=== PATIENT | male | born 1965 | race African-American/Black ===

== ENCOUNTER 2024-11-27 19:03 | Inpatient (IN) | payer MEDICAID, OTHER ==
[~2024-11-27] VITALS: Ht 188 cm; Wt 120.9 kg
--- NOTE | 2024-11-27 19:30 | ED.PDOC ---
SOB-HPI HPI Comments 59-year-old male who presents to the ED with c/c of shortness of breath Patient states he has had 4 episodes of episodic shortness of breath and came today for further evaluation after he noted associated chest pain Patient states the chest pain is substernal nonradiating with noted exacerbation of pain with exertion and L relieving factors Patient states he otherwise has a noted history of stress corner artery disease with 2 stents placed and hypertension but states he has been out of his blood pressure and blood thinner medication for the past year Patient states he has tried to get an appointment with PCP with states appointments has been getting rescheduled or canceled Patient states he was not taking his blood thinner for the past year and states he has been taking blood pressure medication given to him by his mother patient in the ED has a notable pressure of 193/106 with otherwise stable vitals including heart rate 79 respiratory rate 18 temperature 99.2 F and O2 saturation 96% on room air Patient now in the ED otherwise denies any chest pain or shortness of breath an states the symptoms resolved prior to ED arrival Patient in the ED otherwise denies headache dizziness diaphoresis chills nausea vomiting or any associated symptoms Past Medical history: Hypertension, coronary artery disease, hyperlipidemia Past Surgical history: 2 x cardiac stents Medications: Unknown blood thinner Allergies: denies Social history: denies ETOH, denies tobacco use, denies drug use HPI: Poor Historian. REVIEW OF SYSTEMS: CONSTITUTIONAL: Denies acute: fever, diaphoresis, chills, generalized weakness. HEAD: Denies acute: headache, photophobia Eyes: Denies acute: Double vision, vision loss, eye pain, eye discharge. EARS: Denies acute: tinnitus, hearing loss, ear discharge, ear pain, THROAT: Denies acute: sore throat, swelling, difficulty swallowing , pain with swallowing, change in voice. NECK: Denies acute: neck pain, neck swelling, stiff neck. HEART: Denies acute : palpitations, LUNGS: Denies acute: wheezing, cough, hemoptysis ABDOMEN: Denies acute: abdominal pain, Nausea, Vomiting, diarrhea, melena , hematemesis, hematochezia SKIN: Denies acute: rash, redness, lesions, itchiness. EXTREMITIES: Denies acute: calf pain, numbness, tingling, weakness, denies pain in extremity. Denies acute: Low back pain. Neuro: Denies acute: focal neurological deficit, motor or sensory focal neurological deficit, tremors, seizure like activity, confusion, dizziness, change in mental status, loss of bowel or bladder function, cauda equina like symptoms. : Denies acute: dysuria, hematuria, flank pain, increase in urinary frequency. PSYCH: Denies acute: hallucination, suicidal ideation, homicidal ideation. PHYSICAL EXAM: General: ----mild----acute distress, awake and alert. Head: normocephalic, atraumatic. Neck: supple, trachea is midline, no swelling. Throat: Normal phonation. Eyes:, no erythema, no purulent discharge, no proptosis, no icterus. Heart: regular rate, regular rhythm, no significant murmur appreciated. Lungs: no apparent respiratory distress, Able to speak in full sentences. No wheezing, no rhonchi, no crackles. No stridors Clear to auscultation bilaterally. Abdomen: non tender to palpation, non distended, soft, no guarding, no rebound, + bowel sounds. Neuro: Awake, Alert, oriented to name, self, situation, follows commands GCS=15. Speech is normal. Skin: no petechia, no purpura, no cyanosis, non-pale, not jaundice. Lower extremities: --no - Pitting edema no deformity, no focal swelling, no calf TTP. Makes eye contact. moves all four extremities. Face: no apparent facial droop. Ambulating in the ED independently. ED COURSE: DISCLAIMER: This medical document was created using an electronic medical record system with voice recognition software and computerized dictation system. Although this document has been carefully reviewed, there might still be some phonetic and typographical errors. Occasional wrong-word or "sound-alike" substitutions may have occurred due to the inherent limitations of voice recognition software. These areas are purely typographical due to imperfections of the software programs and do not reflect any compromise in the patient's medical care. Please read the chart carefully and recognize, using context, where these substitutions have occurred. Chief Complaint: Shortness of Breath Time Seen by MD: 20:21 Reviewed notes: Medications, Allergies Information Source: Patient Mode of Arrival: Ambulatory EKG EKG : Pulse Rate (adult): 77 [place]: Normal Cardiac Rhythm: NSR Block: None Hypertrophy: None ST: Normal Comments T-wave inversions in lead III, V5 and V6 Was a procedure done? Was a procedure done?: No Differential Dx Differential Diagnosis: Other (DDx include ACS, unstable angina, anxiety, PE, pneumothroax, neoplasm, cardiac ischemia, COPD, asthma, CHF, pleural effusion, tobacco abuse, pneumonia, hypoxia, hypercapnia, anemia., infection/sepsis., pulmonary edema. Asthma, Cardiac tamponade, infection.) X-Ray, Labs, Meds, VS Vital Signs Date Time Temp Pulse Resp B/P (MAP) Pulse Ox O2 Delivery O2 Flow Rate FiO2 11/27/24 21:21 66 150/101 11/27/24 21:03 181/111 11/27/24 21:01 65 181/111 (134) 11/27/24 21:01 181/111 11/27/24 20:29 176/110 11/27/24 20:27 73 11/27/24 20:26 98.2 76 14 176/110 (132) 96 98.2 11/27/24 19:29 77 11/27/24 19:13 77 11/27/24 19:04 99.2 79 18 193/106 96 99.2 Lab Test 11/27/24 20:31 11/27/24 19:23 Range/Units Phosphorus Level 2.6 2.4-5.1 mg/dL Magnesium Level 2.0 1.6-2.6 mg/dL Troponin I High Sensitivity 34 33 </=54 ng/L Triglycerides Level 166 H < 150 mg/dL Cholesterol Level 129 < 200 mg/dL LDL Cholesterol 73 < 100 mg/dL HDL Cholesterol 39 L 40-59 mg/dL White Blood Count 7.9 4.4-10.8 10^3/uL Red Blood Count 4.21 L 4.5-5.90 10^6/uL Hemoglobin 13.7 13.5-17.5 g/dL Hematocrit 40.1 L 41.0-53.0 % Mean Corpuscular Volume 95.4 80.0-100.0 fL Mean Corpuscular Hemoglobin 32.6 H 28.0-32.0 pg Mean Corpuscular Hemoglobin Concent 34.1 32.0-36.0 g/dL Red Cell Distribution Width 12.7 11.8-14.3 % Platelet Count 230 140-450 10^3/uL Mean Platelet Volume 9.1 6.9-10.8 fL Neutrophils (%) (Auto) 68.7 37.0-80.0 % Lymphocytes (%) (Auto) 21.5 10.0-50.0 % Monocytes (%) (Auto) 7.6 0.0-12.0 % Eosinophils (%) (Auto) 1.3 0.0-7.0 % Basophils (%) (Auto) 0.9 0.0-2.0 % Neutrophils # (Auto) 5.4 1.6-8.6 10 ^3/uL Lymphocytes # (Auto) 1.7 0.4-5.4 10 ^3/uL Monocytes # (Auto) 0.6 0-1.3 10 ^3/uL Eosinophils # (Auto) 0.1 0-0.8 10 ^3/uL Basophils # (Auto) 0.1 0-0.2 10 ^3/uL Nucleated Red Blood Cells 0.1 % Sodium Level 137 136-145 mmol/L Potassium Level 4.1 3.5-5.1 mmol/L Chloride Level 102 98-107 mmol/L Carbon Dioxide Level 28 20-31 mmol/L Anion Gap 7 5-15 Blood Urea Nitrogen 23 9-23 mg/dL Creatinine 1.77 H 0.700-1.30 mg/dL Glomerular Filtration Rate Calc 44 >90 mL/min BUN/Creatinine Ratio 13.0 10.0-20.0 Serum Glucose 311 H 74-106 mg/dL Hemoglobin A1c 8.5 H <5.7 % A1C Calcium Level 8.9 8.7-10.4 mg/dL Total Bilirubin 0.3 0.2-1.0 mg/dL Aspartate Amino Transferase (AST) 19 13-40 U/L Alanine Aminotransferase (ALT) 17 7-40 U/L Alkaline Phosphatase 69 46-116 U/L B-Type Natriuretic Peptide 19.63 0-100 pg/mL Total Protein 6.3 5.7-8.2 g/dL Albumin 3.6 3.2-4.8 g/dL Vitamin B12 Level 572 211-911 pg/mL Vitamin D 25-Hydroxy 34.0 30.0-100 ng/mL Thyroid Stimulating Hormone (TSH) 1.03 0.55-4.78 uIU/mL [facility] [address] [facility] [address] Ph: [phone] DIAGNOSTIC IMAGING Diagnostic Imaging Report : [id number] Signed PATIENT: CAMI CARRILLOT: [id number] UNIT: [id number] : 1965 LOC: ER ROOM / BED: / AGE / SEX: 59 / M ADM STATUS: REG ER SERVICE 16 ORDERING PHYSICIAN: FERNANDEZ LANGLEY DO PROCEDURE(s): CXRP - CHEST PORTABLE REASON: cp/sob ORDER NUMBER(s): [id number], ACCESSION NUMBER(s): [id number] CHEST RADIOGRAPH Indication: cp/sob Technique: Single frontal view of the chest was obtained COMPARISON: None FINDINGS: Lungs and pleural spaces are clear. Cardiac silhouette and shwetha are within normal limits. Bones and soft tissues demonstrate no significant abnormality. IMPRESSION: No acute disease. ATED BY: JCARLOS ISAAC MD DICTATED DATE/TIME: 11/27/242001 SIGNED BY: JCARLOS ISAAC MD SIGNED DATE/TIME: 11/27/242001 CC: Time of 1ST Reevaluation: 00:00 Reevaluation 1ST: N/A Patient Education/Counseling: Diagnosis, Treatment Family Education/Counseling: No Family Present Comments MDM: patient presented with the above HPI.--dyspnea----workup was initiated. patient was found with the above mentioned diagnosis. the following medications were ordered: please refer to order lists of meds and tests obtained by myself Dr. Langley. Patient ED course and VS have been stabilized. Patient has been reassessed in the ED and remained in a stable condition. Pertinent incidental findings were discussed with the patient and/or family. Patient/family voices understanding and is agreeable with plan. Patient has been observed in the ED adequate length of time to insure i mprovement/stability. Escalation of care considered: Consideration of escalation to observation or admission Patient was ADMITTED to the medicine team for further evaluation and treatment of their presentation. All the reports of any imaging studies that were ordered by myself were reviewed by myself. SEPSIS Sepsis Screen Date sepsis recognized/suspect: Nov 27, 2024 Time Sepsis recognized/suspect: 1906 Recent Procedure: No On Antibiotic Therapy: No Respiratory Rate >20: No Heart Rate >90: No Temp<36 C (96.8 F) or >38.3 C: No SBP <90 or MAP <65 mmHG: No New Acute Mental Status Change: No Is the patient on CPAP, BIPAP,: No Physician Orders Geoscience Technician (11/27/24 ) Chest Portable (11/27/24 19:17) Vital Signs Date Time Temp Pulse Resp B/P (MAP) Pulse Ox O2 Delivery O2 Flow Rate FiO2 11/27/24 21:21 66 150/101 11/27/24 21:03 181/111 11/27/24 21:01 65 181/111 (134) 11/27/24 21:01 181/111 11/27/24 20:29 176/110 11/27/24 20:27 73 11/27/24 20:26 98.2 76 14 176/110 (132) 96 98.2 11/27/24 19:29 77 11/27/24 19:13 77 11/27/24 19:04 99.2 79 18 193/106 96 99.2 Laboratory Tests Test 11/27/24 19:23 White Blood Count 7.9 10^3/uL (4.4-10.8) Departure 1 Departure Time of Disposition: 20:33 Impression: Primary Impression: Chest pain Additional Impressions: Abnormal EKG T wave inversion in EKG Hypertension Disposition: ADMITTED INPATIENT Admit to: Tele Condition: Guarded e-Prescriptions No Active Prescriptions or Reported Meds Discharged With: Self Critical Care Note Critical Care Time?: Yes (35 min-critical care time only) Heart Score Heart Score: Heart Score Response (Comments) Value History Slightly Suspicious 0 EKG Repolarization Disturb 1 Age 45-64 1 Risk Factors 1 or 2 risk factors 1 Troponin Normal limit 0 Total 3 I personally scribed for FERNANDEZ LANGLEY DO ([facility]) on 11/27/24 at 19:29. Electronically submitted by Olive Hollingsworth ([facility]). I personally scribed for FERNANDEZ LANGLEY DO ([email or web address]) on 11/27/24 at 20:22. Electronically submitted by Olive Hollingsworth ([facility]). I personally scribed for FERNANDEZ LANGLEY DO ([email or web address]) on 11/27/24 at 20:24. Electronically submitted by Olive Hollingsworth ([facility]). FERNANDEZ LANGLEY DO Nov 27, 2024 19:29
[2024-11-27 19:41] LABS: Hematocrit 40.1 % (41.0-53.0); Hemoglobin 13.7 g/dL (13.5-17.5); Mean Corpuscular Hemoglobin 32.6 pg (28.0-32.0); Mean Corpuscular Volume 95.4 fL (80.0-100.0); Nucleated Red Blood Cells % 0.1 %
[2024-11-27 19:55] LABS: Alanine Aminotransferase 17 U/L (7-40); Albumin 3.6 g/dL (3.2-4.8); Alkaline Phosphatase 69 U/L (46-116); Anion Gap 7 (5-15); BUN/Creatinine Ratio 13.0 (10.0-20.0); Blood Urea Nitrogen 23 mg/dL (9-23); Calcium 8.9 mg/dL (8.7-10.4); Carbon Dioxide 28 mmol/L (20-31); Chloride 102 mmol/L (98-107); Potassium 4.1 mmol/L (3.5-5.1); Sodium 137 mmol/L (136-145); Total Protein 6.3 g/dL (5.7-8.2)
--- NOTE | 2024-11-27 20:04 | DVH ---
CHEST RADIOGRAPH Indication: cp/sob Technique: Single frontal view of the chest was obtained COMPARISON: None FINDINGS: Lungs and pleural spaces are clear. Cardiac silhouette and shwetha are within normal limits. Bones and s oft tissues demonstrate no significant abnormality. IMPRESSION: No acute disease.
[2024-11-27] MEDS: ASPirin-EC 325mg tab PO ONE (20:29)
[2024-11-27] MEDS: NITROGLYCERIN 0.4 MG SL TAB SL ONE ×2 (20:29→21:01)
[2024-11-27 20:59] LABS: Glucose 311 mg/dL (74-106)
[2024-11-27 21:00] LABS: Bilirubin, Total 0.3 mg/dL (0.2-1.0)
[2024-11-27] MEDS: LABETALOL HCL 20 MG/4 ML VL IV ONE (21:21)
--- NOTE | 2024-11-27 22:20 | DVHHPRES ---
History of Present Illness Resident Creating Document: ALEE OLIVER History of Present Illness Mr. Varghese is a 59-year-old male with prior medical history of hypertension and 1 myocardial infarction status post PCI with 2 drug-eluting stents 2 years ago, who presents today with chief complaint of shortness of breath. The patient states today he has spontaneous onset of shortness of breath at rest, with no aggravating factors, associated with retrosternal chest pain described as tightness, nonradiating, with intensity 4/10, without aggravating factors, mildly improved with consumption of ice water. Patient states he is currently not taking any medications besides baby aspirin as he is between PCPs and ran out of his medication. due to persistence of symptoms the patient sought care at the emergency room. On evaluation in the ED, the patient's blood pressure was 193/106. Twelve lead EKG shows sinus rhythm with T-wave inversions. initial labs show CBC within normal range and creatinine 1.77. Chest x-ray shows no acute disease. Patient was given IV labetalol and nitroglycerin. He was admitted for further workup and monitoring. Cardiovascular: HTN, ME Past Surgical History: None Family History: None Smoke: Quit ALCOHOL: none Drugs: Marijuana (Refers he occasionally use marijuana for about 10 years, quit 6 years ago) Lives: with Family Domestic Violence: Neg Review of Systems Review of Systems Constitutional: Denies weight loss, fever and chills. HEENT: Denies changes in vision and hearing. Respiratory: Denies shortness of breath and cough Cardiovascular: Refers chest tightness, Denies palpitations GI: Denies abdominal distention, abdominal pain, diarrhea : Denies dysuria and urinary frequency. Musculoskeletal: Denies symptoms Skin: Denies rash and pruritus. Neurological: denies dizziness headache vision or hearing problems Allergies: Coded Allergies: No Known Drug Allergy (Verified Allergy, Unknown, 11/27/24) Exam Vital Signs Vital Signs Date Time Temp Pulse Resp B/P (MAP) Pulse Ox O2 Delivery O2 Flow Rate FiO2 11/27/24 21:21 66 150/101 11/27/24 20:26 98.2 14 96 98.2 Exam General: The patient alert and oriented in person place and time. Patient following commands HEENT: Normocephalic, atraumatic, normal reactive pupils, EOM intact, pink conjunctiva, pink moist mucous membrane Respiratory/pulmonary: Bilateral chest expansion, no pain on palpation of chest wall, clear lungs bilaterally, vesicular murmurs present in almost all lung guajardo, no associated crackles or wheezes. Cardiovascular: Normal RRR, normal S1 and S2, no murmurs Abdomen: Abdomen nondistended, normal bowel sounds, soft, there is no pain to palpation in any of the abdominal quadrants, no palpable masses. Extremities: No deformities, there is no peripheral edema present at the lower extremities, normal pulses Skin: No rashes or pruritus, there is no sacral edema present at this time. Neurological: Intact cranial nerves with no focal neurologic deficits Labs/Xrays Labs Test 11/27/24 20:31 11/27/24 19:23 Range/Units Troponin I High Sensitivity 34 </=54 ng/L White Blood Count 7.9 4.4-10.8 10^3/uL Red Blood Count 4.21 L 4.5-5.90 10^6/uL Hemoglobin 13.7 13.5-17.5 g/dL Hematocrit 40.1 L 41.0-53.0 % Mean Corpuscular Volume 95.4 80.0-100.0 fL Mean Corpuscular Hemoglobin 32.6 H 28.0-32.0 pg Mean Corpuscular Hemoglobin Concent 34.1 32.0-36.0 g/dL Red Cell Distribution Width 12.7 11.8-14.3 % Platelet Count 230 140-450 10^3/uL Mean Platelet Volume 9.1 6.9-10.8 fL Neutrophils (%) (Auto) 68.7 37.0-80.0 % Lymphocytes (%) (Auto) 21.5 10.0-50.0 % Monocytes (%) (Auto) 7.6 0.0-12.0 % Eosinophils (%) (Auto) 1.3 0.0-7.0 % Basophils (%) (Auto) 0.9 0.0-2.0 % Neutrophils # (Auto) 5.4 1.6-8.6 10 ^3/uL Lymphocytes # (Auto) 1.7 0.4-5.4 10 ^3/uL Monocytes # (Auto) 0.6 0-1.3 10 ^3/uL Eosinophils # (Auto) 0.1 0-0.8 10 ^3/uL Basophils # (Auto) 0.1 0-0.2 10 ^3/uL Nucleated Red Blood Cells 0.1 % Sodium Level 137 136-145 mmol/L Potassium Level 4.1 3.5-5.1 mmol/L Chloride Level 102 98-107 mmol/L Carbon Dioxide Level 28 20-31 mmol/L Anion Gap 7 5-15 Blood Urea Nitrogen 23 9-23 mg/dL Creatinine 1.77 H 0.700-1.30 mg/dL Glomerular Filtration Rate Calc 44 >90 mL/min BUN/Creatinine Ratio 13.0 10.0-20.0 Serum Glucose 311 H 74-106 mg/dL Hemoglobin A1c 8.5 H <5.7 % A1C Calcium Level 8.9 8.7-10.4 mg/dL Total Bilirubin 0.3 0.2-1.0 mg/dL Aspartate Amino Transferase (AST) 19 13-40 U/L Alanine Aminotransferase (ALT) 17 7-40 U/L Alkaline Phosphatase 69 46-116 U/L B-Type Natriuretic Peptide 19.63 0-100 pg/mL Total Protein 6.3 5.7-8.2 g/dL Albumin 3.6 3.2-4.8 g/dL Vitamin B12 Level 572 211-911 pg/mL Vitamin D 25-Hydroxy 34.0 30.0-100 ng/mL SEPSIS Sepsis Screen Date sepsis recognized/suspect: Nov 27, 2024 Time Sepsis recognized/suspect: 1906 Recent Procedure: No On Antibiotic Therapy: No Respiratory Rate >20: No Heart Rate >90: No Temp<36 C (96.8 F) or >38.3 C: No SBP <90 or MAP <65 mmHG: No New Acute Mental Status Change: No Is the patient on CPAP, BIPAP,: No Physician Orders Patient Access Registrar (11/27/24 ) Chest Portable (11/27/24 19:17) Electrocardigram (11/27/24 19:17) Troponin-I Hs (11/27/24 22:17) Electrocardigram (11/27/24 20:17) Electrocardigram (11/27/24 22:17) Phosphorus (11/27/24 21:37) Thyroid Stimulating Hormone (11/27/24 21:37) Magnesium (11/27/24 21:37) Urinalysis (11/27/24 21:37) Drug Screen (11/27/24 21:37) Lipid Panel (11/27/24 21:37) Admit (11/27/24 22:09) Allergies (11/27/24 22:09) Code Status (11/27/24 22:09) Acetaminophen Tablet (Tylenol Tablet) (11/27/24 22:15) Complete Blood Count (11/28/24 04:00) Comprehensive Metabolic Panel (11/28/24 04:00) Cardiac Diet-2gna,Lofat,Lochol (11/28/24 Breakfast) Echo 2d Mode Cardiac Dop (11/27/24 22:09) Condition: Stable (11/27/24 22:09) Stat Ekg For Chest Pain (11/27/24 22:09) Notify Of Changes From Base (11/27/24 22:09) Roofer Apprentice For 24 Hours (11/27/24 22:09) Emergency Dysrhythmia Protocol (11/27/24 22:09) Rhythm Strips Once Every Shift (11/27/24 22:09) Lisinopril Tablet (Zestril Tablet) (11/28/24 10:00) Atorvastatin (Lipitor) (11/27/24 22:15) Atorvastatin (Lipitor) (11/28/24 22:00) Aspirin Tablet (11/28/24 10:00) Vital Signs Date Time Temp Pulse Resp B/P (MAP) Pulse Ox O2 Delivery O2 Flow Rate FiO2 11/27/24 21:21 66 150/101 11/27/24 21:03 181/111 11/27/24 21:01 65 181/111 (134) 11/27/24 21:01 181/111 11/27/24 20:29 176/110 11/27/24 20:27 73 11/27/24 20:26 98.2 76 14 176/110 (132) 96 98.2 11/27/24 19:29 77 11/27/24 19:13 77 11/27/24 19:04 99.2 79 18 193/106 96 99.2 Laboratory Tests Test 11/27/24 19:23 White Blood Count 7.9 10^3/uL (4.4-10.8) Medications Medications Dose Ordered Sig/Thalia Route Start Time Stop Time Status Last Admin Dose Admin Aspirin 325 mg ONCE ONCE PO 11/27/24 19:30 11/27/24 19:31 DC 11/27/24 20:29 325 MG Labetalol HCl 5 mg ONCE ONCE IV 11/27/24 21:15 11/27/24 21:16 DC 11/27/24 21:21 5 MG Nitroglycerin 0.4 mg ONCE ONCE SL 11/27/24 19:30 11/27/24 19:31 DC 11/27/24 20:29 0.4 MG Nitroglycerin 0.4 mg ONCE ONCE SL 11/27/24 21:15 11/27/24 21:16 DC 11/27/24 21:01 0.4 MG Assessment/Plan Assessment/Plan Assessment and Plan: Hypertensive crisis - Labetalol IV 5 mg once - Nitroglycerin 0.4 mg SL x 2 - EKG: sinus rhythm with inferolateral T-wave inversions - Reinitiated Lisinopril 20 mg p.o. daily - Monitor blood pressure - Cardiac diet - Echocardiogram has been ordered Acute chest pain, likely due to above - Aspirin 325 mg p.o. once - EKG: sinus rhythm with T-wave inversions - Troponins negative Possible CUCO due to VMN/ hemodynamically mediated - Monitor renal function - Avoid nephrotoxic drugs Newly diagnosed type 2 diabetes mellitus with hyperglycemia, HB A1c 8.5 -Mild SSI -Accu-Cheks History of ME status post PCI with 2 drug-eluting stents - Aspirin 81 mg p.o. - Lipitor 40 mg p.o. HS Obesity, BMI 34.2 Kg/m2 - Counseled the patient on the importance of maintaining a balanced low low- fat/ low-salt/ low-carbohydrate diet, weight loss, and maintaining regular moderate exercise Diet: Cardiac DVT prophylaxis: not indicated, patient is ambulatory GI prophylaxis: Not indicated Case discussed with Dr. Chung Goals of care discussed with the patient for over 26 minutes. FULL CODE. Plan discussed with: Patient, Other (Nurses) My Orders Orders - ALEE OLIVER RESIDENT Procedure Category Date Status Time Phosphorus LAB 11/27/24 In Process 21:37 Thyroid Stimulating LAB 11/27/24 In Process Hormone 21:37 Magnesium LAB 11/27/24 In Process 21:37 Urinalysis LAB 11/27/24 Logged 21:37 Drug Screen LAB 11/27/24 Logged 21:37 Lipid Panel LAB 11/27/24 In Process 21:37 Admit ADMIT 11/27/24 Transmitted 22:09 Allergies DIANNA 11/27/24 Transmitted 22:09 Code Status CODE 11/27/24 Transmitted 22:09 Acetaminophen Tablet PHA 11/27/24 Transmitted (Tylenol Tablet) 22:15 Complete Blood Count LAB 11/28/24 Verified 04:00 Comprehensive LAB 11/28/24 Verified Metabolic Panel 04:00 Cardiac DIET 11/28/24 Transmitted Diet-2gna,Lofat,Lochol Breakfast Echo 2d Mode Cardiac US 11/27/24 Logged DOP 22:09 Condition: Stable [facility] 11/27/24 Transmitted 22:09 Stat Ekg For Chest [facility] 11/27/24 Transmitted Pain 22:09 Notify Md Of Changes [facility] 11/27/24 Transmitted From Base 22:09 Roofer Apprentice For [facility] 11/27/24 Transmitted 24 Hours 22:09 Emergency Dysrhythmia [facility] 11/27/24 Transmitted Protocol 22:09 Rhythm Strips Once [facility] 11/27/24 Transmitted Every Shift 22:09 Lisinopril Tablet [facility] 11/28/24 Transmitted (Zestril Tablet) 10:00 Atorvastatin (Lipitor) [facility] 11/27/24 Transmitted 22:15 Atorvastatin (Lipitor) [facility] 11/28/24 Transmitted 22:00 Aspirin Tablet [facility] 11/28/24 Transmitted 10:00 Date of Service: Nov 27, 2024 Billing Provider: LAILA CHUNG MD Common Visit Codes: [id number] INP/OBS CARE (HIGH) Secondary Visit Codes: [id number] CARE PLAN 30 MINUTES ALEE OLIVER RESIDENT Nov 27, 2024 22:20 SOURAV SHEIKH RESIDENT Nov 28, 2024 04:20
[2024-11-27 22:36] LABS: Magnesium 2.0 mg/dL (1.6-2.6)
[2024-11-27 22:37] LABS: Cholesterol 129.0 mg/dL (< 200)
[2024-11-27 22:40] LABS: HDL Cholesterol 39.0 mg/dL (40-59); Triglycerides 166.0 mg/dL (< 150)
[2024-11-27] MEDS: ATORVASTATIN 20 MG TAB PO ONE (23:25)
[2024-11-27] MEDS: LISINOPRIL 20 MG TAB PO ONE (23:50)
[2024-11-28] VITALS (8 sets, daily range): BP systolic 146–165; BP diastolic 85–107; PULSE 63–72; RESP 17–20; TEMP 97.5–98.8; O2SAT 96–99
[2024-11-28] MEDS ORDERED: DEXTROSE (50%) 50ML SYRG IV PRN (03:15)
--- NOTE | 2024-11-28 05:11 | ECG ---
[facility] Test Date: 2024-11-27 Test Time: 22:20:03 Pat Name: DARSHAN CARRILLO Department: Room: 0288T B Gender: M Advertising Agency Manager: MINDY : 1965 Requested By: FERNANDEZ LANGLEY Order Number: [id number] Reading MD: Manish Mclain Measurements Intervals [place] Rate: 60 P: 43 [place]: 162 QRS: 28 QRSD: 88 T: -34 QT: 412 QTc: 412 Interpretive Statements Sinus rhythm Ventricular premature complex Inferior infarct, age indeterminate Posterior infarct, old Lateral leads are also involved Electronically Signed On 12-04-2024 21:45:25 PDT by Manish Mclain Please click the below link to view image of tracing.
--- NOTE | 2024-11-28 05:11 | ECG ---
[facility] Test Date: 2024-11-27 Test Time: 20:27:13 Pat Name: DARSHAN CARRILLO Department: Room: 0288T B Gender: M Fabricator Assembler Metal Products: MINDY : 1965 Requested By: FERNANDEZ LANGLEY Order Number: [id number] Reading MD: Manish Mclain Measurements Intervals [place] Rate: 73 P: 70 [place]: 171 QRS: 46 QRSD: 82 T: -32 QT: 377 QTc: 416 Interpretive Statements Sinus rhythm Abnormal R-wave progression, early transition Borderline repolarization abnormality Minimal ST elevation, anterior leads Electronically Signed On 12-04-2024 21:45:22 PDT by Manish Mclain Please click the below link to view image of tracing.
[2024-11-28 06:05] LABS: Hematocrit 37.7 % (41.0-53.0); Hemoglobin 13.0 g/dL (13.5-17.5); Mean Corpuscular Hemoglobin 32.9 pg (28.0-32.0); Mean Corpuscular Volume 95.7 fL (80.0-100.0); Nucleated Red Blood Cells % 0.1 %
[2024-11-28 06:16] LABS: Alanine Aminotransferase 15 U/L (7-40); Albumin 3.5 g/dL (3.2-4.8); Alkaline Phosphatase 60 U/L (46-116); Anion Gap 9 (5-15); BUN/Creatinine Ratio 9.8 (10.0-20.0); Bilirubin, Total 0.3 mg/dL (0.2-1.0); Blood Urea Nitrogen 16 mg/dL (9-23); Carbon Dioxide 26 mmol/L (20-31); Chloride 104 mmol/L (98-107); Potassium 3.8 mmol/L (3.5-5.1); Sodium 139 mmol/L (136-145); Total Protein 6.2 g/dL (5.7-8.2)
[2024-11-28 06:21] LABS: Calcium 8.5 mg/dL (8.7-10.4); Glucose 218 mg/dL (74-106)
[2024-11-28] MEDS: ACCU-CHEK COMFORT CURVE STRIP VI SCH (07:36)
[2024-11-28] MEDS: InsuLIN REG 1unit/0.01ml Soln (100units/ml) SC SCH (07:38)
--- NOTE | 2024-11-28 09:41 | ECG ---
[facility] Test Date: 2024-11-27 Test Time: 19:13:21 Pat Name: DARSHAN CARRILLO Department: Room: 0288T B Gender: M Clinical Tech: NESTOR : 1965 Requested By: FERNANDEZ LANGLEY Order Number: [id number] Reading MD: Manish Mclain Measurements Intervals [place] Rate: 77 P: 69 [place]: 164 QRS: 46 QRSD: 87 T: -30 QT: 362 QTc: 410 Interpretive Statements Sinus rhythm Abnormal R-wave progression, early transition Borderline repolarization abnormality Minimal ST elevation, lateral leads Electronically Signed On 12-04-2024 21:45:14 PDT by Manish Mclain Please click the below link to view image of tracing.
[2024-11-28] MEDS: LISINOPRIL 20 MG TAB PO SCH (10:01)
--- NOTE | 2024-11-28 12:14 | DVHPN2 ---
Reviewed: Care Plan, H&P, Labs, Medications, Previous Orders, Radiology Changes from previous H/P or p: No Changes Objective Vitals Vital Signs Date Time Temp Pulse Resp B/P (MAP) Pulse Ox O2 Delivery O2 Flow Rate FiO2 11/28/24 10:01 158/99 11/28/24 08:58 98.0 70 20 99 98.0 11/28/24 08:00 Room Air* 0 21 Intake/Output Intake and Output 11/28/24 07:00 Intake Total 50 ml Balance 50 ml Intake Oral 50 ml # Voids 1 Medications Current Medications Medications Dose Ordered Sig/Thalia Route Start Time Stop Time Status Last Admin Dose Admin Acetaminophen 325 mg Q4HP PRN PO 11/27/24 22:15 Lisinopril 20 mg DAILY PO 11/28/24 10:00 11/28/24 10:01 20 MG Atorvastatin Calcium 40 mg HS PO 11/28/24 22:00 Aspirin 81 mg DAILY PO 11/28/24 10:00 11/28/24 10:01 81 MG Diagnostic Test (Pha) 1 strip ACHS 11/28/24 07:00 11/28/24 11:58 1 STRIP Insulin Human Regular ACHS SC 11/28/24 07:00 11/28/24 07:38 4 UNITS Dextrose 50 ml UD PRN IV 11/28/24 03:15 Laboratory Results Laboratory Tests 11/28/24 05:30 Chemistry Test 11/27/24 19:23 11/27/24 20:31 11/28/24 05:30 Albumin 3.6 g/dL (3.2-4.8) 3.5 g/dL (3.2-4.8) Calcium Level 8.9 mg/dL (8.7-10.4) 8.5 mg/dL (8.7-10.4) L Total Protein 6.3 g/dL (5.7-8.2) 6.2 g/dL (5.7-8.2) Magnesium Level 2.0 mg/dL (1.6-2.6) Phosphorus Level 2.6 mg/dL (2.4-5.1) Lipid panel Test 11/27/24 20:31 Cholesterol Level 129 mg/dL (< 200) HDL Cholesterol 39 mg/dL (40-59) L Triglycerides Level 166 mg/dL (< 150) H Cardiac Markers Test 11/27/24 19:23 B-Type Natriuretic Peptide 19.63 pg/mL (0-100) LFT Test 11/27/24 19:23 11/28/24 05:30 Alanine Aminotransferase (ALT) 17 U/L (7-40) 15 U/L (7-40) Alkaline Phosphatase 69 U/L (46-116) 60 U/L (46-116) Aspartate Amino Transferase (AST) 19 U/L (13-40) 15 U/L (13-40) Total Bilirubin 0.3 mg/dL (0.2-1.0) 0.3 mg/dL (0.2-1.0) HgA1c, TSH Test 11/27/24 19:23 Hemoglobin A1c 8.5 % A1C (<5.7) H Thyroid Stimulating Hormone (TSH) 1.03 uIU/mL (0.55-4.78) Labs and/or images reviewed: Labs reviewed by me, Image(s) reviewed by me Assessment/Plan Assessment/Plan Hypertensive crisis systolic 193 metoprolol, lisinopril, cardiology consult for Dr. Ramos Acute chest pain likely secondary to hypertensive crisis troponin negative Possibly CUCO versus vasomotor nephropathy Newly diagnosed type 2 diabetes, A1c 8.5: Counseling insulin sliding scale Hypercholesterolemia cholesterol 166: Lipitor History of [place] status post stents Morbid obesity BMI of 34 counseling Time spent 55 minutes Advanced care planning time 20 minutes Patient is full code at bed side Plan discussed with: Patient My Orders Orders - AIDA PALACIOS MD Procedure Category Date Status Time * Cardiology Consult CONS 11/28/24 Verified 12:00 Date of Service: Nov 28, 2024 Billing Provider: AIDA PALACIOS MD Common Visit Codes: [id number] INP/OBS CARE(HIGH) AIDA PALACIOS MD Nov 28, 2024 12:14
--- NOTE | 2024-11-28 12:55 | DVHINCON2 ---
Date Seen: Nov 28, 2024 Referring Physician MD Simeon Reason for Consultation Chest pain History of Present Illness This is a 59-year-old man who presented to the emergency room with a chief complaint of shortness of breath for three days. The patient complains of progressive shortness of breath associated with MATT, and chest pain described as substernal, nonradiating, pressure-like, constant, and associated with activity. He presented with a systolic blood pressure up to the 180s mmHg. He underwent multiple 12 lead electrocardiograms x3 revealing a sinus rhythm with T-wave inversion to inferior leads as well as leads V5-V6 (nonprogressive changes). Serial troponin levels are negative. Reports a significant history of cardiovascular disease but somehow stopped following up with a primary lehr attendant over a year ago. Significant medical history includes coronary artery disease status post PTCA and stenting x2 NILTON on ASA at [facility] in 2019, hypertension, dyslipidemia, chronic kidney disease, and obesity. Of note, the patient denies taking any home medications besides ASA. Past Medical History Past medical history reviewed. No other significant than mentioned above. Past Surgical History PTCA and stenting x2 NILTON, 2019 Family History: Patient reports no known family medical history. Family History Family history reviewed. Not significant for cardiovascular disease. Social History Denies the use of alcohol or tobacco use. Admits to cannabinoid use. Allergies: Coded Allergies: No Known Drug Allergy (Verified Allergy, Unknown, 11/27/24) Home Meds No Active Prescriptions or Reported Meds Home Meds Only reports one home medication: ASA. Current Medications Current Medications Medications (Trade) Dose Ordered Sig/Thalia Route PRN Reason Start Time Stop Time Status Last Admin Acetaminophen (Tylenol Tablet) 325 mg Q4HP PRN PO MILD PAIN (1-3 PAIN SCALE) 11/27/24 22:15 Lisinopril (Zestril Tablet) 20 mg DAILY PO 11/28/24 10:00 11/28/24 10:01 Atorvastatin Calcium (Lipitor) 40 mg HS PO 11/28/24 22:00 Aspirin 81 mg DAILY PO 11/28/24 10:00 11/28/24 10:01 Diagnostic Test (Pha) (Accu-Chek Comfort Curve T) 1 strip ACHS 11/28/24 07:00 11/28/24 11:58 Insulin Human Regular (InsuLIN R) ACHS SC 11/28/24 07:00 11/28/24 11:30 Dextrose 50 ml UD PRN IV Blood Sugar LESS THAN 60 11/28/24 03:15 Metoprolol Tartrate (Lopressor Tablet) 50 mg BID PO 11/28/24 22:00 Review of Systems Constitutional: No symptom reported Ears, Nose, & Throat: No symptom reported Eyes: No symptom reported Neurological: No symptoms reported Pulmonary/Respiratory: SOB Cardiovascular: Chest pain Gastrointestinal: No symptom reported Genitourinary: No symptom reported Musculoskeletal: No symptom reported Skin: No symptom reported Psychiatric: No symptom reported Endocrine: No symptom reported Hemotologic/Lymphatic: No symptom reported Vital Signs Vital Signs Date Time Temp Pulse Resp B/P (MAP) Pulse Ox O2 Delivery O2 Flow Rate FiO2 11/28/24 10:01 158/99 11/28/24 08:58 98.0 70 20 99 98.0 11/28/24 08:00 Room Air* 0 21 Physical Exam General Appearance: Cooperative. Well developed. Well nourished. In no acute distress Head Exam: Normal inspection Neck Exam: Normal inspection. Non-tender. Normal alignment Pulmonary/Respiratory: Chest non-tender. Clear bilateral breath sounds Cardiovascular/Chest: Regular rate and rhythm. S1, S2. Sinus rhythm with T- wave inversion to inferior leads as well as lead V5-V6. No murmurs. No JVD. Peripheral Pulses: 2+ Radial (R). 2+ Radial (L). 2+ Pedal (R). 2+ Pedal (L) Abdominal Exam: Normal bowel sounds. Soft. Nontender. No hepatospenomegaly. No masses Ankle Exam: Negative ankle edema Lower extremities: Negative lower extremity edema Neuro/Mental Status: A&O x4. Coherent Thoughts/Psych: Normal thought pattern. Appropriate mood and affect. Good judgement and insight Appearance: In no acute distress Skin Exam: Normal inspection. Normal color. Warm. Dry Labs/Diagnostic Data Labs Test 11/28/24 11:49 11/28/24 05:30 11/27/24 22:15 11/27/24 20:31 Range/Units POC Glucose 188 H 70-106 mg/dl White Blood Count 6.5 4.4-10.8 10^3/uL Red Blood Count 3.94 L 4.5-5.90 10^6/uL Hemoglobin 13.0 L 13.5-17.5 g/dL Hematocrit 37.7 L 41.0-53.0 % Mean Corpuscular Volume 95.7 80.0-100.0 fL Mean Corpuscular Hemoglobin 32.9 H 28.0-32.0 pg Mean Corpuscular Hemoglobin Concent 34.4 32.0-36.0 g/dL Red Cell Distribution Width 12.7 11.8-14.3 % Platelet Count 199 140-450 10^3/uL Mean Platelet Volume 8.8 6.9-10.8 fL Neutrophils (%) (Auto) 64.5 37.0-80.0 % Lymphocytes (%) (Auto) 25.7 10.0-50.0 % Monocytes (%) (Auto) 7.5 0.0-12.0 % Eosinophils (%) (Auto) 1.9 0.0-7.0 % Basophils (%) (Auto) 0.4 0.0-2.0 % Neutrophils # (Auto) 4.2 1.6-8.6 10 ^3/uL Lymphocytes # (Auto) 1.7 0.4-5.4 10 ^3/uL Monocytes # (Auto) 0.5 0-1.3 10 ^3/uL Eosinophils # (Auto) 0.1 0-0.8 10 ^3/uL Basophils # (Auto) 0 0-0.2 10 ^3/uL Nucleated Red Blood Cells 0.1 % Sodium Level 139 136-145 mmol/L Potassium Level 3.8 3.5-5.1 mmol/L Chloride Level 104 98-107 mmol/L Carbon Dioxide Level 26 20-31 mmol/L Anion Gap 9 5-15 Blood Urea Nitrogen 16 9-23 mg/dL Creatinine 1.64 H 0.700-1.30 mg/dL Glomerular Filtration Rate Calc 48 >90 mL/min BUN/Creatinine Ratio 9.8 L 10.0-20.0 Serum Glucose 218 H 74-106 mg/dL Calcium Level 8.5 L 8.7-10.4 mg/dL Total Bilirubin 0.3 0.2-1.0 mg/dL Aspartate Amino Transferase (AST) 15 13-40 U/L Alanine Aminotransferase (ALT) 15 7-40 U/L Alkaline Phosphatase 60 46-116 U/L Total Protein 6.2 5.7-8.2 g/dL Albumin 3.5 3.2-4.8 g/dL Troponin I High Sensitivity 34 </=54 ng/L Phosphorus Level 2.6 2.4-5.1 mg/dL Magnesium Level 2.0 1.6-2.6 mg/dL Triglycerides Level 166 H < 150 mg/dL Cholesterol Level 129 < 200 mg/dL LDL Cholesterol 73 < 100 mg/dL HDL Cholesterol 39 L 40-59 mg/dL Test 11/27/24 19:23 Range/Units Hemoglobin A1c 8.5 H <5.7 % A1C B-Type Natriuretic Peptide 19.63 0-100 pg/mL Vitamin B12 Level 572 211-911 pg/mL Vitamin D 25-Hydroxy 34.0 30.0-100 ng/mL Thyroid Stimulating Hormone (TSH) 1.03 0.55-4.78 uIU/mL Assessment Acute coronary syndrome rule out progressive coronary artery disease Coronary artery disease status post PTCA and stenting x2 NILTON (on ASA) Hypertensive urgency Dyslipidemia Chronic kidney disease stage 3 Diabetes mellitus, newly diagnosed (HgbA1C 8.4%) Cannabinoid use Obesity Plan/Recommendation (Dr. Ramos) Scheduled for a cardiac catheterization coronary angiogram with Dr. Ramos on 12/01/2024. All risks and benefits of the procedure were discussed with the patient who agrees to proceed with intervention. All questions answered. In the meantime, obtain a transthoracic echocardiogram to evaluate cardiac function, initiate aggressive blood pressure control, and renal hydration prior to procedure. Continue single-antiplatelet therapy and lipid lowering agent. Continue tight glycemic control. Monitor ECG changes closely and notify. Obtain a Nephrology consultation given CKD and risk of CARA. Initiate DVT/VTE prophylaxis. Further orders per clinical course. Thank you for allowing us to participate in this patient's care. Please call if you have any questions or concerns. Critical care time: 40 min. This medical document was created using an electronic medical record system with voice recognition software and computerized dictation system. Although this document has been carefully reviewed, there might still be some phonetic and typographical errors. Occasional wrong-word or ``sound-alike substitutions may have occurred due to the inherent limitations of voice recognition software. These areas are purely typographical due to imperfections of the software programs and do not reflect any compromise in the patient's medical care. Please read the chart carefully and recognize, using context, where these substitutions have occurred. Plan discussed with: Patient, Other NYHA Physical activity limitations: NA Date of Service: Nov 28, 2024 Billing Provider: ADOLFO CROCKER Cardiology Common Codes: [id number] CARE 30-74 MIN ADOLFO CROCKER Nov 28, 2024 12:55
[2024-11-28] MEDS: SODIUM CHLORIDE 0.9% 1,000 ML IV SCH (15:58)
[2024-11-28] MEDS: METOPROLOL TARTRATE 50 MG TAB PO ONE (16:01)
[2024-11-28] MEDS: hydrALAZINE HCL 20 MG/ML VL IV PRN (18:18)
--- NOTE | 2024-11-28 18:36 | DVHSR ---
APPROVED REPORT EXAM: Two-dimensional and M-mode echocardiogram with Doppler and color Doppler. Blood Pressure: 146/88 mmHg INDICATION Eval EF RISK FACTORS Height: 72, Weight: 266 DIMENSIONS LVDd4.3 (3.8-5.7cm)LA (2D)4.7 (1.9-4.0cm)Aortic Root4.0 (2.0-3.7cm) LVDs2.6 (2.5-4.0cm)LA (MM) (1.9-4.0cm)Aortic Cusp Exc1.9 (1.5-2.0cm) EF (%) 71.0 (55-70%)Rt. Atrium4.1 (1.9-4.0cm)Asc. Aorta cm Mitral Valve MitralMitral Stenosis E wave0.93m/sMV Mean GR.mmHg A wave1.25m/sMV Peak GR.129mmHg E/A ratio0.72D MVAcm2 DECEL [id number] 1/2 [id number] IVRTmsDop MVA3.14cm2 Aortic Valve Aortic ValveAortic Stenosis V11.18m/Hector Mean GR.3mmHg V21.20m/Hector Peak GR.6mmHg LVOT Diameter1.9 (1.8-2.4cm)Doppler AVA2.79cm2 Pulmonic Valve V20.66m/s Tricuspid Valve TR Velocity1.64m/s [id number] Conclusion MILD LVH AND MILD LV DIASTOLIC DYSFUNCTION LV EF IS 70% NORMAL VALVES SLIGHTLY DILATED LA NO EFFUSION
[2024-11-28] MEDS: ATORVASTATIN 20 MG TAB PO SCH (21:45)
[2024-11-28] MEDS: METOPROLOL TARTRATE 50 MG TAB PO SCH (21:45)
[2024-11-29] VITALS (8 sets, daily range): BP systolic 122–181; BP diastolic 76–117; PULSE 60–77; RESP 16–20; TEMP 97.4–98.6; O2SAT 96–99
[2024-11-29] MEDS: ACETAMINOPHEN 325 MG TAB PO PRN (06:02)
[2024-11-29] MEDS: ENOXAPARIN SOD 40 MG/0.4 ML SYRINGE SC SCH (08:33)
--- NOTE | 2024-11-29 12:24 | DVHPN2 ---
Reviewed: Care Plan, H&P, Labs, Medications, Previous Orders, Radiology Changes from previous H/P or p: No Changes Objective Vitals Vital Signs Date Time Temp Pulse Resp B/P (MAP) Pulse Ox O2 Delivery O2 Flow Rate FiO2 11/29/24 09:32 61 137/63 11/29/24 09:00 97.4 20 98 97.4 11/29/24 08:00 Room Air* 0 21 Intake/Output Intake and Output 11/29/24 07:00 Intake Total 3220 ml Output Total 1000 ml Balance 2220 ml Intake Oral 3120 ml IV Total 100 ml Output Urine Total 1000 ml # Voids 3 Medications Current Medications Medications Dose Ordered Sig/Thalia Route Start Time Stop Time Status Last Admin Dose Admin Acetaminophen 325 mg Q4HP PRN PO 11/27/24 22:15 11/29/24 06:02 325 MG Atorvastatin Calcium 40 mg HS PO 11/28/24 22:00 11/28/24 21:45 40 MG Aspirin 81 mg DAILY PO 11/28/24 10:00 11/29/24 08:33 81 MG Diagnostic Test (Pha) 1 strip ACHS 11/28/24 07:00 11/29/24 11:15 1 STRIP Insulin Human Regular ACHS SC 11/28/24 07:00 11/29/24 11:15 2 UNITS Dextrose 50 ml UD PRN IV 11/28/24 03:15 Metoprolol Tartrate 50 mg BID PO 11/28/24 22:00 11/29/24 08:32 50 MG Nifedipine 60 mg DAILY PO 11/29/24 10:00 11/29/24 08:33 60 MG Sodium Chloride 1,000 ml @ 50 mls/hr Q20H IV 11/28/24 12:30 11/28/24 15:58 50 MLS/HR Enoxaparin Sodium 40 mg DAILY SC 11/29/24 10:00 11/29/24 08:33 40 MG Hydralazine HCl 10 mg Q6HP PRN IV 11/28/24 16:30 11/29/24 06:03 10 MG Laboratory Results Laboratory Tests 11/28/24 05:30 Labs and/or images reviewed: Labs reviewed by me, Image(s) reviewed by me Assessment/Plan Assessment/Plan Hypertensive crisis systolic 193 metoprolol, lisinopril, cardiology consult for Dr. Ramos Acute chest pain rule out coronary artery disease, troponin negative, cardiology consult by Dr. Ramos appreciated, scheduled for left heart catheterization on 12/01/24 Possibly CUCO versus vasomotor nephropathy Newly diagnosed type 2 diabetes, A1c 8.5: Counseling insulin sliding scale diabetic education, needs diabetic supplies at the time of discharge Hypercholesterolemia cholesterol 166: Lipitor History of [place] status post stents CKD 3 Marijuana use Morbid obesity BMI of 34 counseling Time spent 55 minutes Advanced care planning time 20 minutes Patient is full code at bed side Plan discussed with: Patient Date of Service: Nov 29, 2024 Billing Provider: AIDA PALACIOS MD Common Visit Codes: [id number] INP/OBS CARE(HIGH) AIDA PALACIOS MD Nov 29, 2024 12:24
--- NOTE | 2024-11-29 14:49 | DVHINCON2 ---
Date of service: Nov 29, 2024 Referring Physician Ayla Duncan NP Reason for Consultation CKD History of Present Illness Mr. Varghese is a 59-year-old male with known history of hypertension, coronary artery disease who presented for further evaluation and management of shortness of breath. Current consultation requested for evaluation of elevated serum creatinine to the mid, upper one range. He was seen in his room earlier today, awake alert conversant and in no acute distress. He has had a cardiology evaluation during current hospitalization there are plans for left heart catheterization on December 01. He states that he has not been diabetic of diabetes as well. Past Medical History Hypertension Coronary artery disease Allergies: Coded Allergies: No Known Drug Allergy (Verified Allergy, Unknown, 11/27/24) Home Meds No Active Prescriptions or Reported Meds Current Medications Current Medications Medications (Trade) Dose Ordered Sig/Thalia Route PRN Reason Start Time Stop Time Status Last Admin Atorvastatin Calcium (Lipitor) 40 mg HS PO 11/28/24 22:00 11/28/24 21:45 Metoprolol Tartrate (Lopressor Tablet) 50 mg BID PO 11/28/24 22:00 11/29/24 08:32 Nifedipine (Procardia Xl (Time-Release)) 60 mg DAILY PO 11/29/24 10:00 11/29/24 08:33 Enoxaparin Sodium (Lovenox) 40 mg DAILY SC 11/29/24 10:00 11/29/24 08:33 Hydralazine HCl (Apresoline Injection) 10 mg Q6HP PRN IV SBP>150 11/28/24 16:30 11/29/24 06:03 Family History: Patient reports no known family medical history. Review of Systems As per history of present illness otherwise all systems are reviewed and are noncontributory. H&P Exam Vital Signs/I&O Vital Sign Date Time Temp Pulse Resp B/P (MAP) Pulse Ox O2 Delivery O2 Flow Rate FiO2 11/29/24 12:30 97.5 62 20 157/96 (116) 98 97.5 11/29/24 08:00 Room Air* 0 21 Intake and Output 11/28/24 11/29/24 19:00 07:00 Intake Total 1970 ml 1250 ml Output Total 1000 ml Balance 970 ml 1250 ml Intake Oral 1870 ml 1250 ml IV Total 100 ml Output Urine Total 1000 ml # Voids 3 Physical Exam Gen: nad heent: nc/at, mmm lungs: cta anteriorly cvs: no rub abd: soft, bowel sounds audible ext: no edema skin: no rash neuro: alert and oriented Labs/Diagnostic Data Labs/Diagnostic Data Laboratory Tests Test 11/29/24 10:56 11/29/24 05:52 11/28/24 21:43 11/28/24 16:57 Range/Units POC Glucose 154 H 205 H 229 H 130 H 70-106 mg/dl Test 11/28/24 11:49 11/28/24 05:46 11/28/24 05:30 11/27/24 22:15 Range/Units POC Glucose 188 H 224 H 70-106 mg/dl White Blood Count 6.5 4.4-10.8 10^3/uL Red Blood Count 3.94 L 4.5-5.90 10^6/uL Hemoglobin 13.0 L 13.5-17.5 g/dL Hematocrit 37.7 L 41.0-53.0 % Mean Corpuscular Volume 95.7 80.0-100.0 fL Mean Corpuscular Hemoglobin 32.9 H 28.0-32.0 pg Mean Corpuscular Hemoglobin Concent 34.4 32.0-36.0 g/dL Red Cell Distribution Width 12.7 11.8-14.3 % Platelet Count 199 140-450 10^3/uL Mean Platelet Volume 8.8 6.9-10.8 fL Neutrophils (%) (Auto) 64.5 37.0-80.0 % Lymphocytes (%) (Auto) 25.7 10.0-50.0 % Monocytes (%) (Auto) 7.5 0.0-12.0 % Eosinophils (%) (Auto) 1.9 0.0-7.0 % Basophils (%) (Auto) 0.4 0.0-2.0 % Neutrophils # (Auto) 4.2 1.6-8.6 10 ^3/uL Lymphocytes # (Auto) 1.7 0.4-5.4 10 ^3/uL Monocytes # (Auto) 0.5 0-1.3 10 ^3/uL Eosinophils # (Auto) 0.1 0-0.8 10 ^3/uL Basophils # (Auto) 0 0-0.2 10 ^3/uL Nucleated Red Blood Cells 0.1 % Sodium Level 139 136-145 mmol/L Potassium Level 3.8 3.5-5.1 mmol/L Chloride Level 104 98-107 mmol/L Carbon Dioxide Level 26 20-31 mmol/L Anion Gap 9 5-15 Blood Urea Nitrogen 16 9-23 mg/dL Creatinine 1.64 H 0.700-1.30 mg/dL Glomerular Filtration Rate Calc 48 >90 mL/min BUN/Creatinine Ratio 9.8 L 10.0-20.0 Serum Glucose 218 H 74-106 mg/dL Calcium Level 8.5 L 8.7-10.4 mg/dL Total Bilirubin 0.3 0.2-1.0 mg/dL Aspartate Amino Transferase (AST) 15 13-40 U/L Alanine Aminotransferase (ALT) 15 7-40 U/L Alkaline Phosphatase 60 46-116 U/L Total Protein 6.2 5.7-8.2 g/dL Albumin 3.5 3.2-4.8 g/dL Troponin I High Sensitivity 34 </=54 ng/L Test 11/27/24 20:31 11/27/24 19:23 Range/Units Phosphorus Level 2.6 2.4-5.1 mg/dL Magnesium Level 2.0 1.6-2.6 mg/dL Troponin I High Sensitivity 34 33 </=54 ng/L Triglycerides Level 166 H < 150 mg/dL Cholesterol Level 129 < 200 mg/dL LDL Cholesterol 73 < 100 mg/dL HDL Cholesterol 39 L 40-59 mg/dL White Blood Count 7.9 4.4-10.8 10^3/uL Red Blood Count 4.21 L 4.5-5.90 10^6/uL Hemoglobin 13.7 13.5-17.5 g/dL Hematocrit 40.1 L 41.0-53.0 % Mean Corpuscular Volume 95.4 80.0-100.0 fL Mean Corpuscular Hemoglobin 32.6 H 28.0-32.0 pg Mean Corpuscular Hemoglobin Concent 34.1 32.0-36.0 g/dL Red Cell Distribution Width 12.7 11.8-14.3 % Platelet Count 230 140-450 10^3/uL Mean Platelet Volume 9.1 6.9-10.8 fL Neutrophils (%) (Auto) 68.7 37.0-80.0 % Lymphocytes (%) (Auto) 21.5 10.0-50.0 % Monocytes (%) (Auto) 7.6 0.0-12.0 % Eosinophils (%) (Auto) 1.3 0.0-7.0 % Basophils (%) (Auto) 0.9 0.0-2.0 % Neutrophils # (Auto) 5.4 1.6-8.6 10 ^3/uL Lymphocytes # (Auto) 1.7 0.4-5.4 10 ^3/uL Monocytes # (Auto) 0.6 0-1.3 10 ^3/uL Eosinophils # (Auto) 0.1 0-0.8 10 ^3/uL Basophils # (Auto) 0.1 0-0.2 10 ^3/uL Nucleated Red Blood Cells 0.1 % Sodium Level 137 136-145 mmol/L Potassium Level 4.1 3.5-5.1 mmol/L Chloride Level 102 98-107 mmol/L Carbon Dioxide Level 28 20-31 mmol/L Anion Gap 7 5-15 Blood Urea Nitrogen 23 9-23 mg/dL Creatinine 1.77 H 0.700-1.30 mg/dL Glomerular Filtration Rate Calc 44 >90 mL/min BUN/Creatinine Ratio 13.0 10.0-20.0 Serum Glucose 311 H 74-106 mg/dL Hemoglobin A1c 8.5 H <5.7 % A1C Calcium Level 8.9 8.7-10.4 mg/dL Total Bilirubin 0.3 0.2-1.0 mg/dL Aspartate Amino Transferase (AST) 19 13-40 U/L Alanine Aminotransferase (ALT) 17 7-40 U/L Alkaline Phosphatase 69 46-116 U/L B-Type Natriuretic Peptide 19.63 0-100 pg/mL Total Protein 6.3 5.7-8.2 g/dL Albumin 3.6 3.2-4.8 g/dL Vitamin B12 Level 572 211-911 pg/mL Vitamin D 25-Hydroxy 34.0 30.0-100 ng/mL Thyroid Stimulating Hormone (TSH) 1.03 0.55-4.78 uIU/mL Assessment IMP: 1) Hemodynamically mediated CUCO/VMN 2) CKD stage IIIb 3) new onset type 2 diabetes 4) coronary artery disease/ chest pain 5) hypertension REC: - agree with current plan of care, recommendations to avoid NSAIDs as tolerated. - he is at relatively low risk for severe episode of contrast induced nephropathy, severity of risk to correlate With volume of iodinated contrast that may be required for diagnostic and/or therapeutic purpose. - judicious IV hydration pre and post catheterization. - we will continue to follow closely with you. Thank you for the consultation. Plan discussed with: Patient BKEAH BOLDEN MD Nov 29, 2024 14:49
[2024-11-30] VITALS (8 sets, daily range): BP systolic 119–169; BP diastolic 74–103; PULSE 68–89; RESP 16–20; TEMP 97.8–98.9; O2SAT 96–98
--- NOTE | 2024-11-30 11:00 | DVHPN2 ---
Reviewed: Care Plan, H&P, Labs, Medications, Previous Orders, Radiology Changes from previous H/P or p: No Changes Objective Vitals Vital Signs Date Time Temp Pulse Resp B/P (MAP) Pulse Ox O2 Delivery O2 Flow Rate FiO2 11/30/24 09:09 119/74 11/30/24 09:08 69 11/30/24 09:00 98.0 20 98 98.0 11/29/24 20:00 Room Air* 0 21 Intake/Output Intake and Output 11/30/24 07:00 Intake Total 2230 ml Output Total 700 ml Balance 1530 ml Intake Oral 1440 ml IV Total 790 ml Output Urine Total 700 ml # Voids 4 # Bowel Movements 1 Medications Current Medications Medications Dose Ordered Sig/Thalia Route Start Time Stop Time Status Last Admin Dose Admin Acetaminophen 325 mg Q4HP PRN PO 11/27/24 22:15 11/29/24 06:02 325 MG Atorvastatin Calcium 40 mg HS PO 11/28/24 22:00 11/29/24 21:22 40 MG Aspirin 81 mg DAILY PO 11/28/24 10:00 11/30/24 09:07 81 MG Diagnostic Test (Pha) 1 strip ACHS 11/28/24 07:00 11/30/24 06:04 1 STRIP Insulin Human Regular ACHS SC 11/28/24 07:00 11/30/24 06:17 3 UNITS Dextrose 50 ml UD PRN IV 11/28/24 03:15 Metoprolol Tartrate 50 mg BID PO 11/28/24 22:00 11/30/24 09:08 50 MG Nifedipine 60 mg DAILY PO 11/29/24 10:00 11/30/24 09:09 60 MG Sodium Chloride 1,000 ml @ 50 mls/hr Q20H IV 11/28/24 12:30 11/30/24 03:00 50 MLS/HR Enoxaparin Sodium 40 mg DAILY SC 11/29/24 10:00 11/29/24 08:33 40 MG Hydralazine HCl 10 mg Q6HP PRN IV 11/28/24 16:30 11/29/24 06:03 10 MG Laboratory Results Laboratory Tests 11/28/24 05:30 Labs and/or images reviewed: Labs reviewed by me, Image(s) reviewed by me Assessment/Plan Assessment/Plan Hypertensive crisis systolic 193 metoprolol, lisinopril, cardiology consult for Dr. Ramos Acute chest pain rule out coronary artery disease, troponin negative, cardiology consult by Dr. Ramos appreciated, scheduled for left heart catheterization on 12/01/24 Possibly CUCO versus vasomotor nephropathy Newly diagnosed type 2 diabetes, A1c 8.5: Counseling insulin sliding scale diabetic education, needs diabetic supplies at the time of discharge Hypercholesterolemia cholesterol 166: Lipitor History of [place] status post stents CKD 3 Marijuana use Morbid obesity BMI of 34 counseling Time spent 55 minutes Advanced care planning time 20 minutes Patient is full code at bed side Needs new PCP in [facility]: Social service consult placed Plan discussed with: Patient, Other (RN) Date of Service: Nov 30, 2024 Billing Provider: AIDA PALACIOS MD Common Visit Codes: [id number] INP/OBS CARE(HIGH) AIDA PALACIOS MD Nov 30, 2024 11:00
--- NOTE | 2024-11-30 15:29 | DVHPN2 ---
Progress Note Date Seen: Nov 30, 2024 Medical Necessity Reason Pt with a Central, PICC or Fol: No Subjective Review of Systems No BMP was drawn today. Scheduled for heart cath 12/01 Patient reports: No new complaints Objective vital signs Vital Sign Date Time Temp Pulse Resp B/P (MAP) Pulse Ox O2 Delivery O2 Flow Rate FiO2 11/30/24 13:00 97.8 70 19 169/97 (121) 97 97.8 11/30/24 08:00 Room Air* 0 21 Total Intake and Output 11/29/24 11/29/24 11/30/24 15:00 23:00 07:00 Intake Total 2230 ml Output Total 700 ml Balance 1530 ml medications Current Medications Medications Dose Ordered Sig/Thalia Route Start Time Stop Time Status Last Admin Dose Admin Acetaminophen 325 mg Q4HP PRN PO 11/27/24 22:15 11/29/24 06:02 325 MG Atorvastatin Calcium 40 mg HS PO 11/28/24 22:00 11/29/24 21:22 40 MG Aspirin 81 mg DAILY PO 11/28/24 10:00 11/30/24 09:07 81 MG Diagnostic Test (Pha) 1 strip ACHS 11/28/24 07:00 11/30/24 11:32 1 STRIP Insulin Human Regular ACHS SC 11/28/24 07:00 11/30/24 11:33 2 UNITS Dextrose 50 ml UD PRN IV 11/28/24 03:15 Metoprolol Tartrate 50 mg BID PO 11/28/24 22:00 11/30/24 09:08 50 MG Nifedipine 60 mg DAILY PO 11/29/24 10:00 11/30/24 09:09 60 MG Sodium Chloride 1,000 ml @ 50 mls/hr Q20H IV 11/28/24 12:30 11/30/24 03:00 50 MLS/HR Enoxaparin Sodium 40 mg DAILY SC 11/29/24 10:00 11/29/24 08:33 40 MG Hydralazine HCl 10 mg Q6HP PRN IV 11/28/24 16:30 11/29/24 06:03 10 MG Examination Gen: Appears stated age, NAD Heart: RRR, normal S1 and S2 Lungs: CTA, bilateral air entry Ext: No edema Neuro: Alert and oriented x 4 laboratory and microbiology Laboratory Tests 11/28/24 05:30 Test 11/28/24 05:30 Range/Units Serum Glucose 218 H 74-106 mg/dL Labs and/or images reviewed: Labs reviewed by me Problem List/Assessment/Plan Problem List/Assessment/Plan IMP: 1) Hemodynamically mediated CUCO/VMN 2) CKD stage IIIb 3) new onset type 2 diabetes 4) coronary artery disease/ chest pain 5) hypertension REC: - BMP in am. - Blood pressure control - Glycemic control - Judicious IV hydration prior to and after heart catheterization - Continue avoidance of NSAIDs - Strict I&Os - We will continue to follow Plan discussed with: Patient DANIELLE BELLA [facility] Nov 30, 2024 15:29
--- NOTE | 2024-11-30 16:29 | DVHPN2 ---
Subjective No cardiac events reported Reviewed: Care Plan, H&P, Labs, Medications, Previous Orders, Radiology Changes from previous H/P or p: No Changes Objective Vitals Vital Signs Date Time Temp Pulse Resp B/P (MAP) Pulse Ox O2 Delivery O2 Flow Rate FiO2 11/30/24 13:00 97.8 70 19 169/97 (121) 97 97.8 11/30/24 08:00 Room Air* 0 21 Intake/Output Intake and Output 11/30/24 07:00 Intake Total 2230 ml Output Total 700 ml Balance 1530 ml Intake Oral 1440 ml IV Total 790 ml Output Urine Total 700 ml # Voids 4 # Bowel Movements 1 Medications Current Medications Medications Dose Ordered Sig/Thalia Route Start Time Stop Time Status Last Admin Dose Admin Acetaminophen 325 mg Q4HP PRN PO 11/27/24 22:15 11/29/24 06:02 325 MG Atorvastatin Calcium 40 mg HS PO 11/28/24 22:00 11/29/24 21:22 40 MG Aspirin 81 mg DAILY PO 11/28/24 10:00 11/30/24 09:07 81 MG Diagnostic Test (Pha) 1 strip ACHS 11/28/24 07:00 11/30/24 11:32 1 STRIP Insulin Human Regular ACHS SC 11/28/24 07:00 11/30/24 11:33 2 UNITS Dextrose 50 ml UD PRN IV 11/28/24 03:15 Metoprolol Tartrate 50 mg BID PO 11/28/24 22:00 11/30/24 09:08 50 MG Nifedipine 60 mg DAILY PO 11/29/24 10:00 11/30/24 09:09 60 MG Sodium Chloride 1,000 ml @ 50 mls/hr Q20H IV 11/28/24 12:30 11/30/24 03:00 50 MLS/HR Enoxaparin Sodium 40 mg DAILY SC 11/29/24 10:00 11/29/24 08:33 40 MG Hydralazine HCl 10 mg Q6HP PRN IV 11/28/24 16:30 11/29/24 06:03 10 MG Laboratory Results Laboratory Tests 11/28/24 05:30 Assessment/Plan Assessment/Plan Acute coronary syndrome rule out progressive coronary artery disease Coronary artery disease status post PTCA and stenting x2 [place] Hypertensive urgency Dyslipidemia Chronic kidney disease stage 3 Diabetes mellitus, the newly diagnosed Cannabinoid use Obesity Plan/recommendation; (Dr. Alonso) Scheduled for a cardiac catheterization coronary angiogram with Dr. Alonso on 12/01/2024. Echo: MILD LVH AND MILD LV DIASTOLIC DYSFUNCTION LV EF IS 70% NORMAL VALVES SLIGHTLY DILATED LA NO EFFUSION Plan discussed with: Patient Date of Service: Nov 30, 2024 Billing Provider: SONJA ALONSO MD Common Visit Codes: NOT BILLABLE Consultation Codes: [id number] CONSULT <45MIN SOLO MAGALLANESP Nov 30, 2024 16:29
[2024-11-30 17:35] LABS: Alanine Aminotransferase 16 U/L (7-40); Albumin 4.4 g/dL (3.2-4.8); Alkaline Phosphatase 76 U/L (46-116); Anion Gap 8 (5-15); BUN/Creatinine Ratio 11.1 (10.0-20.0); Bilirubin, Total 0.5 mg/dL (0.2-1.0); Blood Urea Nitrogen 17 mg/dL (9-23); Calcium 9.1 mg/dL (8.7-10.4); Carbon Dioxide 23 mmol/L (20-31); Chloride 105 mmol/L (98-107); Potassium 4.3 mmol/L (3.5-5.1); Sodium 136 mmol/L (136-145); Total Protein 7.8 g/dL (5.7-8.2)
[2024-11-30 17:39] LABS: INR 1.02 (0.9-1.15); Partial Thromboplastin Time 27.6 SEC (24.5-34.5); Prothrombin Time 10.8 sec (9.3-11.8)
[2024-11-30 18:17] LABS: Glucose 116 mg/dL (74-106)
[2024-12-01] VITALS (14 sets, daily range): BP systolic 136–166; BP diastolic 76–107; PULSE 61–98; RESP 15–20; TEMP 97.4–98.9; O2SAT 96–99
[2024-12-01 05:43] LABS: Hematocrit 44.2 % (41.0-53.0); Hemoglobin 15.4 g/dL (13.5-17.5); Mean Corpuscular Hemoglobin 33.3 pg (28.0-32.0); Mean Corpuscular Volume 95.5 fL (80.0-100.0); Nucleated Red Blood Cells % 0.0 %
[2024-12-01 05:52] LABS: Anion Gap 9 (5-15); Carbon Dioxide 22 mmol/L (20-31); Chloride 106 mmol/L (98-107); Potassium 4.2 mmol/L (3.5-5.1); Sodium 137 mmol/L (136-145)
[2024-12-01 05:53] LABS: Calcium 9.1 mg/dL (8.7-10.4)
[2024-12-01 05:58] LABS: BUN/Creatinine Ratio 11.3 (10.0-20.0); Blood Urea Nitrogen 16 mg/dL (9-23)
[2024-12-01 06:04] LABS: Glucose 171 mg/dL (74-106)
--- NOTE | 2024-12-01 12:11 | DVHPN2 ---
Reviewed: Care Plan, H&P, Labs, Medications, Previous Orders, Radiology Changes from previous H/P or p: No Changes Objective Vitals Vital Signs Date Time Temp Pulse Resp B/P (MAP) Pulse Ox O2 Delivery O2 Flow Rate FiO2 12/01/24 09:07 166/107 12/01/24 09:07 70 12/01/24 09:00 98.3 20 98 98.3 12/01/24 08:00 Room Air* 0 21 Intake/Output Intake and Output 12/01/24 07:00 Intake Total 2400 ml Output Total 2 ml Balance 2398 ml Intake Oral 2400 ml Output Urine Total 2 ml # Voids 2 Medications Current Medications Medications Dose Ordered Sig/Thalia Route Start Time Stop Time Status Last Admin Dose Admin Acetaminophen 325 mg Q4HP PRN PO 11/27/24 22:15 11/29/24 06:02 325 MG Atorvastatin Calcium 40 mg HS PO 11/28/24 22:00 11/30/24 21:40 40 MG Aspirin 81 mg DAILY PO 11/28/24 10:00 12/01/24 09:07 81 MG Diagnostic Test (Pha) 1 strip ACHS 11/28/24 07:00 12/01/24 11:16 1 STRIP Insulin Human Regular ACHS SC 11/28/24 07:00 11/30/24 21:39 3 UNITS Dextrose 50 ml UD PRN IV 11/28/24 03:15 Metoprolol Tartrate 50 mg BID PO 11/28/24 22:00 12/01/24 09:07 50 MG Nifedipine 60 mg DAILY PO 11/29/24 10:00 12/01/24 09:07 60 MG Sodium Chloride 1,000 ml @ 50 mls/hr Q20H IV 11/28/24 12:30 12/01/24 00:30 50 MLS/HR Enoxaparin Sodium 40 mg DAILY SC 11/29/24 10:00 11/29/24 08:33 40 MG Hydralazine HCl 10 mg Q6HP PRN IV 11/28/24 16:30 11/29/24 06:03 10 MG Laboratory Results Laboratory Tests 12/01/24 05:18 Chemistry Test 11/30/24 16:38 12/01/24 05:18 Albumin 4.4 g/dL (3.2-4.8) Calcium Level 9.1 mg/dL (8.7-10.4) 9.1 mg/dL (8.7-10.4) Total Protein 7.8 g/dL (5.7-8.2) Coagulation Test 11/30/24 16:38 Prothrombin Time 10.8 sec (9.3-11.8) Prothrombin Time INR 1.02 (0.9-1.15) Activated Partial Thromboplast Time 27.6 SEC (24.5-34.5) LFT Test 11/30/24 16:38 Alanine Aminotransferase (ALT) 16 U/L (7-40) Alkaline Phosphatase 76 U/L (46-116) Aspartate Amino Transferase (AST) 19 U/L (13-40) Total Bilirubin 0.5 mg/dL (0.2-1.0) Labs and/or images reviewed: Labs reviewed by me, Image(s) reviewed by me Assessment/Plan Assessment/Plan Hypertensive crisis systolic 193 metoprolol, lisinopril, cardiology consult for Dr. Ramos Acute chest pain rule out coronary artery disease, troponin negative, cardiology consult by Dr. Ramos appreciated, scheduled for left heart catheterization on 12/01/24 Possibly CUCO versus vasomotor nephropathy Newly diagnosed type 2 diabetes, A1c 8.5: Counseling insulin sliding scale diabetic education, needs diabetic supplies at the time of discharge Hypercholesterolemia cholesterol 166: Lipitor History of [place] status post stents CKD 3 Marijuana use Morbid obesity BMI of 34 counseling Time spent 57 minutes Advanced care planning time 20 minutes Patient is full code at bed side Needs new PCP in [facility]: Social service consult placed Plan discussed with: Patient My Orders Orders - AIDA PALACIOS MD Procedure Category Date Status Time Npo (Nothing By DIET 12/01/24 Transmitted Mouth) Diet Breakfast Date of Service: Dec 01, 2024 Billing Provider: AIDA PALACIOS MD Common Visit Codes: [id number] INP/OBS CARE(HIGH) AIDA PALACIOS MD Dec 01, 2024 12:11
[2024-12-01] MEDS: ANGIOMAX 250 MG VIAL IV ONE (14:43)
[2024-12-01] MEDS: HEPARIN SODIUM (PORCINE) 5000 UNITS/ML 1ML VIAL ONE (14:44)
[2024-12-01] MEDS: VERAPAMIL 2.5MG/ML INJ 2ML VIAL IV ONE (14:44)
[2024-12-01] MEDS: fentaNYL CITRATE 100 MCG/2 ML VL ONE (14:44)
[2024-12-01] MEDS: IODIXANOL 320MG/ML 100ML BTL IV ONE (14:45)
[2024-12-01] MEDS: LIDOCAINE 2%HCL (LOCAL ANESTH.) INJ 20ML MDV ONE (14:45)
[2024-12-01] MEDS: MIDAZOLAM HCL 2MG/2ML 2ml VIAL (1mg/ml) ONE (14:45)
[2024-12-01] MEDS: SODIUM CHL 0.9% 0 ML ONE (14:45)
--- NOTE | 2024-12-01 15:23 | DVHPN2 ---
Progress Note Date Seen: Dec 01, 2024 Medical Necessity Reason Pt with a Central, PICC or Fol: No Subjective Patient reports: Feels better Other Systems: sp cath Objective vital signs Vital Sign Date Time Temp Pulse Resp B/P (MAP) Pulse Ox O2 Delivery O2 Flow Rate FiO2 12/01/24 13:00 97.7 68 20 153/101 (118) 99 97.7 12/01/24 08:00 Room Air* 0 21 Total Intake and Output 11/30/24 11/30/24 12/01/24 15:00 23:00 07:00 Intake Total 1200 ml 1200 ml Output Total 2 ml Balance 1200 ml 1198 ml medications Current Medications Medications Dose Ordered Sig/Thalia Route Start Time Stop Time Status Last Admin Dose Admin Acetaminophen 325 mg Q4HP PRN PO 11/27/24 22:15 11/29/24 06:02 325 MG Atorvastatin Calcium 40 mg HS PO 11/28/24 22:00 11/30/24 21:40 40 MG Aspirin 81 mg DAILY PO 11/28/24 10:00 12/01/24 09:07 81 MG Diagnostic Test (Pha) 1 strip ACHS 11/28/24 07:00 12/01/24 11:16 1 STRIP Insulin Human Regular ACHS SC 11/28/24 07:00 11/30/24 21:39 3 UNITS Dextrose 50 ml UD PRN IV 11/28/24 03:15 Metoprolol Tartrate 50 mg BID PO 11/28/24 22:00 12/01/24 09:07 50 MG Nifedipine 60 mg DAILY PO 11/29/24 10:00 12/01/24 09:07 60 MG Sodium Chloride 1,000 ml @ 50 mls/hr Q20H IV 11/28/24 12:30 12/01/24 00:30 50 MLS/HR Enoxaparin Sodium 40 mg DAILY SC 11/29/24 10:00 11/29/24 08:33 40 MG Hydralazine HCl 10 mg Q6HP PRN IV 11/28/24 16:30 11/29/24 06:03 10 MG Examination: GENERAL:Abnormal, HEENT:Abnormal, LUNGS:Abnormal, CVS:Abnormal, ABDOMEN:Abnormal laboratory and microbiology Laboratory Tests 12/01/24 05:18 Test 12/01/24 05:18 Range/Units Serum Glucose 171 H 74-106 mg/dL Problem List/Assessment/Plan Problem List/Assessment/Plan cad htn obesity ckd s/p cath has MVD recommend cabg start heparin gtt asa statin tx for cabg eval Plan discussed with: Patient My Orders My Orders Orders - SONJA ALONSO MD Procedure Category Date Status Time Cl Left Heart Cath CL 12/01/24 Taken 12:17 Dietary Evaluation Review Recommendations by RD: Dietary education by RD Comments: 1) If patient remains NPO > 7 days, consider EN/TPN to meet at least 75% of estimated daily needs 2) Advance to 45g CCHO renal cardiac diet when medically feasible 3) Encourage patient to limit intake of added sugar including sugar-sweetened beverages, desserts, candy, etc. Aim for a consistent intake of complex carbohydrates spread throughout the day, paired with protein to promote glycemic control 4) Refer to outpatient RD/CDCES for diabetes education and weight management 5) Follow-up with cardiology and nephrology 6) Continue to monitor I&O, labs, and skin integrity Expected Outcomes/Goals: 1) patient to receive nutritional support within 7 days of NPO status 2) labs to improve 3) diet to advance 4) gradual wt loss 5) f/u in 3-5 days Date of Service: Dec 01, 2024 Billing Provider: SONJA ALONSO MD Common Visit Codes: NOT BILLABLE SONJA ALONSO MD Dec 01, 2024 15:23
--- NOTE | 2024-12-01 15:26 | DVHOP2 ---
Operative Report Operative Report CARDIAC MACHINE FITTER PROCEDURE REPORT [place], [place] Date of Service: 12/01/24 Orthotics Prosthetics Technician: Sonja Alonso MD PROCEDURES PERFORMED: Coronary angiogram, left heart catheterization, conscious sedation administration and supervision, less than 15 minutes; fluoroscopy use and interpretation. PREOPERATIVE DIAGNOSES: Abnormal stress test with CCS class 3 angina, POSTOP DIAGNOSIS: 3v cad DESCRIPTION OF PROCEDURE: The patient or appropriate family signed informed consent understanding the risks, benefits and alternatives of the procedure, they wished to proceed. The patient was brought to the cardiac tender labor in n.p.o. state. The patient was prepped in a sterile fashion. Sedation was used per cardiac cath protocol. I administered 2 mL of 2% lidocaine to the right wrist. With an antegrade front wall puncture. I cannulated the right radial artery and placed a 6-[place] Glidesheath slender. Next, an intra-arterial spasmolytic was administered. Next, a - 5French Ong catheter and pigtail and were used for coronary angiogram and LVEDP measurement and pressure pullback. At the completion of procedure, all guides and wires were removed, and there were no immediate complications. FINDINGS: RCA: Moderate vessel off the right sinus of Valsalva, there is a prox RCA 99% stenosis with tandem lesions and distal RCA 95% stenosis with PDA target. PDA mid part has moderate plaque . prox to mid RCA has previous placed stent LEFT MAIN: Moderate size left main, it bifurcates into LAD and circumflex. 60% distal LM stenosis CIRCUMFLEX: Moderate caliber vessel coming off the left main with no flow limiting stenosis. moderate diffuse plaque LAD: LAD is a moderate caliber vessel coming of the left main. distal LAD has long tubular 60% stenosis. CONCLUSIONS: 1. LM and critical RCA stenosis PLAN: Aggressive risk factor modification and medical management for the patient. cabg consult SONJA ALONSO MD Dec 01, 2024 15:26
[2024-12-01] MEDS ORDERED: HEPARIN SODIUM (PORCINE) 5000 UNITS/ML 1ML VIAL IV ONE (15:30)
[2024-12-01] MEDS: ATROPINE SULF 1 MG/10ml SYR ONE (15:44)
[2024-12-01] MEDS ORDERED: NITROGLYCERIN 0.4 MG SL TAB SL PRN (15:45)
--- NOTE | 2024-12-01 15:56 | DVHPN2 ---
Progress Note Date Seen: Dec 01, 2024 Medical Necessity Reason Pt with a Central, PICC or Fol: No Subjective Patient reports: No new complaints Review of Systems: Deferred Objective vital signs Vital Sign Date Time Temp Pulse Resp B/P (MAP) Pulse Ox O2 Delivery O2 Flow Rate FiO2 12/01/24 14:44 190/100 12/01/24 14:44 70 12/01/24 13:00 97.7 20 99 97.7 12/01/24 08:00 Room Air* 0 21 Total Intake and Output 11/30/24 11/30/24 12/01/24 15:00 23:00 07:00 Intake Total 1200 ml 1200 ml Output Total 2 ml Balance 1200 ml 1198 ml medications Current Medications Medications Dose Ordered Sig/Thalia Route Start Time Stop Time Status Last Admin Dose Admin Acetaminophen 325 mg Q4HP PRN PO 11/27/24 22:15 11/29/24 06:02 325 MG Aspirin 81 mg DAILY PO 11/28/24 10:00 12/01/24 09:07 81 MG Diagnostic Test (Pha) 1 strip ACHS 11/28/24 07:00 12/01/24 11:16 1 STRIP Insulin Human Regular ACHS SC 11/28/24 07:00 11/30/24 21:39 3 UNITS Dextrose 50 ml UD PRN IV 11/28/24 03:15 Metoprolol Tartrate 50 mg BID PO 11/28/24 22:00 12/01/24 09:07 50 MG Sodium Chloride 1,000 ml @ 50 mls/hr Q20H IV 11/28/24 12:30 12/01/24 00:30 50 MLS/HR Hydralazine HCl 10 mg Q6HP PRN IV 11/28/24 16:30 11/29/24 06:03 10 MG Heparin Sodium/ Dextrose 250 ml @ 14.508 mls/ hr [id number] IV 12/01/24 15:30 UNV Nitroglycerin 0.4 mg Q5MINP PRN SL 12/01/24 15:45 UNV Morphine Sulfate 2 mg Q30M PRN IV 12/01/24 15:45 UNV Atorvastatin Calcium 80 mg HS PO 12/01/24 22:00 UNV Nifedipine 90 mg DAILY PO 12/02/24 10:00 UNV laboratory and microbiology Laboratory Tests 12/01/24 05:18 Test 12/01/24 05:18 Range/Units Serum Glucose 171 H 74-106 mg/dL Problem List/Assessment/Plan Problem List/Assessment/Plan 1) Hemodynamically mediated CUCO/VMN 2) CKD stage IIIb 3) new onset type 2 diabetes 4) coronary artery disease/ chest pain 5) hypertension REC: - ivf cath today adjust bp meds Plan discussed with: Patient Dietary Evaluation Review Recommendations by RD: Dietary education by RD Comments: 1) If patient remains NPO > 7 days, consider EN/TPN to meet at least 75% of estimated daily needs 2) Advance to 45g CCHO renal cardiac diet when medically feasible 3) Encourage patient to limit intake of added sugar including sugar-sweetened beverages, desserts, candy, etc. Aim for a consistent intake of complex carbohydrates spread throughout the day, paired with protein to promote glycemic control 4) Refer to outpatient RD/CDCES for diabetes education and weight management 5) Follow-up with cardiology and nephrology 6) Continue to monitor I&O, labs, and skin integrity Expected Outcomes/Goals: 1) patient to receive nutritional support within 7 days of NPO status 2) labs to improve 3) diet to advance 4) gradual wt loss 5) f/u in 3-5 days CHUN CASTORENA MD Dec 01, 2024 15:56
[2024-12-01] MEDS ORDERED: MORPHINE SULFATE 4 MG/ML SYR/VIAL IV PRN (16:15)
[2024-12-01] MEDS: LORazepam 2MG/ML-1ML VIAL IV ONE ×2 (16:20→16:51)
[2024-12-01] MEDS: LORazepam 2MG/ML-1ML VIAL ONE (16:51)
[2024-12-01] MEDS: HEPARIN DRIP/D5W 100UNITS/ML 250 ML IV SCH (18:07)
[2024-12-01 18:08] LABS: Hematocrit 47.1 % (41.0-53.0); Hemoglobin 16.2 g/dL (13.5-17.5); Mean Corpuscular Hemoglobin 33.7 pg (28.0-32.0); Mean Corpuscular Volume 98.2 fL (80.0-100.0); Nucleated Red Blood Cells % 0.1 %
[2024-12-01 18:24] LABS: INR 1.06 (0.9-1.15); Partial Thromboplastin Time 31.5 SEC (24.5-34.5); Prothrombin Time 11.2 sec (9.3-11.8)
--- NOTE | 2024-12-01 18:37 | CONS ---
Pharmacy Clinical Information: PTT TODAY AT 1716 = 31.5 SPOKE TO CARLOS ROSARIO REGARDING TO NEW HEPARIN DRIP ORDER NO BOLUS (BOLUS WAS GIVEN IN SCANNER SUPERVISOR PER CARLOS ROSARIO) HEPARIN INITIAL RATE = 1000 UNITS/HR STARTED AT 1807 TODAY 12/01 BY CARLOS ROSARIO NEXT PTT ON 12/02 AT 0000 CARLOS ROSARIO READ BACK INITIAL HEPARIN DRIP RATE 1000 UNITS/HR RX PROTOCOL PATRICK Bullard Dec 01, 2024 18:37
[2024-12-01] MEDS: ATORVASTATIN 20 MG TAB PO SCH (21:33)
[2024-12-02 00:53] LABS: INR 1.01 (0.9-1.15); Partial Thromboplastin Time 33.9 SEC (24.5-34.5); Prothrombin Time 10.7 sec (9.3-11.8)
[2024-12-02 01:00] VITALS: BP 143/98; PULSE 63; RESP 18; TEMP 97.2; O2SAT 97
[2024-12-02] MEDS: HEPARIN SODIUM (PORCINE) 5000 UNITS/ML 1ML VIAL IV ONE (01:22)
[2024-12-02] MEDS: HEPARIN DRIP/D5W 100UNITS/ML 250 ML IV SCH ×2 (01:23→14:46)
[2024-12-02 05:00] VITALS: BP 143/98; PULSE 67; RESP 18; TEMP 97; O2SAT 98
[2024-12-02 07:38] VITALS: PULSE 75
[2024-12-02 08:27] LABS: Hematocrit 45.3 % (41.0-53.0); Hemoglobin 15.7 g/dL (13.5-17.5); Mean Corpuscular Hemoglobin 33.8 pg (28.0-32.0); Mean Corpuscular Volume 97.3 fL (80.0-100.0); Nucleated Red Blood Cells % 0.1 %
[2024-12-02 08:30] VITALS: BP 161/91; PULSE 72; RESP 20; TEMP 97.9; O2SAT 97
[2024-12-02 08:39] LABS: Alanine Aminotransferase 19 U/L (7-40); Albumin 4.0 g/dL (3.2-4.8); Alkaline Phosphatase 75 U/L (46-116); Anion Gap 11 (5-15); BUN/Creatinine Ratio 16.5 (10.0-20.0); Calcium 8.7 mg/dL (8.7-10.4); Carbon Dioxide 20 mmol/L (20-31); Chloride 107 mmol/L (98-107); Potassium 4.3 mmol/L (3.5-5.1); Sodium 138 mmol/L (136-145); Total Protein 7.0 g/dL (5.7-8.2)
[2024-12-02 08:40] LABS: Bilirubin, Total 0.6 mg/dL (0.2-1.0); Blood Urea Nitrogen 23 mg/dL (9-23); Glucose 160 mg/dL (74-106)
[2024-12-02 09:18] LABS: INR 1.06 (0.9-1.15); Partial Thromboplastin Time 55.5 SEC (24.5-34.5); Prothrombin Time 11.2 sec (9.3-11.8)
--- NOTE | 2024-12-02 09:39 | CONS ---
Pharmacy Clinical Information: HEPARIN DRIP, ACS PROTOCOL @0730 APTT 55.5- NO BOLUS, NO CHANGE NEXT APTT DRAW SCHEDULED @1330 PER RX PROTOCOL CONFIRMED AND READ BACK WITH RN ROSE MARY [facility] RESIDENT Dec 02, 2024 09:39
--- NOTE | 2024-12-02 09:55 | ECG ---
[facility] Test Date: 2024-12-01 Test Time: 15:55:08 Pat Name: DARSHAN CARRILLO Department: Room: 0288T B Gender: M [employer] Supervisor: MICHAEL : 1965 Requested By: SONJA ALONSO Order Number: [id number] Reading MD: Manish Mclain Measurements Intervals [place] Rate: 72 P: 37 NH: 170 QRS: 23 QRSD: 80 T: -2 QT: 376 QTc: 411 Interpretive Statements Normal sinus rhythm Possible Inferior infarct , age undetermined Electronically Signed On 12-04-2024 21:07:59 PDT by Manish Mclain Please click the below link to view image of tracing.
--- NOTE | 2024-12-02 12:29 | DVHPN2 ---
Reviewed: Care Plan, H&P, Labs, Medications, Previous Orders, Radiology Changes from previous H/P or p: No Changes Objective Vitals Vital Signs Date Time Temp Pulse Resp B/P (MAP) Pulse Ox O2 Delivery O2 Flow Rate FiO2 12/02/24 10:50 156/104 12/02/24 10:49 119 12/02/24 08:30 20 97 Room Air* 0 21 12/02/24 08:30 97.9 97.9 Intake/Output Intake and Output 12/02/24 07:00 Intake Total 300 ml Output Total 320 ml Balance -20 ml Intake Oral 300 ml Output Urine Total 320 ml Medications Current Medications Medications Dose Ordered Sig/Thalia Route Start Time Stop Time Status Last Admin Dose Admin Acetaminophen 325 mg Q4HP PRN PO 11/27/24 22:15 11/29/24 06:02 325 MG Aspirin 81 mg DAILY PO 11/28/24 10:00 12/02/24 09:30 81 MG Diagnostic Test (Pha) 1 strip ACHS 11/28/24 07:00 12/02/24 06:00 1 STRIP Insulin Human Regular ACHS SC 11/28/24 07:00 12/02/24 06:19 3 UNITS Dextrose 50 ml UD PRN IV 11/28/24 03:15 Metoprolol Tartrate 50 mg BID PO 11/28/24 22:00 12/02/24 09:29 50 MG Sodium Chloride 1,000 ml @ 50 mls/hr Q20H IV 11/28/24 12:30 12/01/24 20:30 50 MLS/HR Hydralazine HCl 10 mg Q6HP PRN IV 11/28/24 16:30 12/02/24 10:50 10 MG Nitroglycerin 0.4 mg Q5MINP PRN SL 12/01/24 15:45 Morphine Sulfate 2 mg Q30M PRN IV 12/01/24 16:15 Atorvastatin Calcium 80 mg HS PO 12/01/24 22:00 12/01/24 21:33 80 MG Nifedipine 90 mg DAILY PO 12/02/24 10:00 12/02/24 09:30 90 MG Heparin Sodium/ Dextrose 250 ml @ 13 mls/hr [id number] IV 12/02/24 01:30 12/02/24 01:23 13 MLS/HR Laboratory Results Laboratory Tests 12/02/24 07:30 Chemistry Test 12/02/24 07:30 Albumin 4.0 g/dL (3.2-4.8) Calcium Level 8.7 mg/dL (8.7-10.4) Total Protein 7.0 g/dL (5.7-8.2) Coagulation Test 12/01/24 17:16 12/02/24 00:15 12/02/24 07:30 Prothrombin Time 11.2 sec (9.3-11.8) 10.7 sec (9.3-11.8) 11.2 sec (9.3-11.8) Prothrombin Time INR 1.06 (0.9-1.15) 1.01 (0.9-1.15) 1.06 (0.9-1.15) Activated Partial Thromboplast Time 31.5 SEC (24.5-34.5) 33.9 SEC (24.5-34.5) 55.5 SEC (24.5-34.5) H LFT Test 12/02/24 07:30 Alanine Aminotransferase (ALT) 19 U/L (7-40) Alkaline Phosphatase 75 U/L (46-116) Aspartate Amino Transferase (AST) 19 U/L (13-40) Total Bilirubin 0.6 mg/dL (0.2-1.0) Labs and/or images reviewed: Labs reviewed by me, Image(s) reviewed by me Assessment/Plan Assessment/Plan Hypertensive crisis systolic 193 metoprolol, lisinopril, cardiology consult for Dr. Ramos Acute chest pain rule out coronary artery disease, troponin negative, cardiology consult by Dr. Ramos appreciated, Status post left heart catheterization by Dr. Ramos with the findings of: LM and critical RCA stenosis, advised transfer to higher level of care for CABG Possibly CUCO versus vasomotor nephropathy Newly diagnosed type 2 diabetes, A1c 8.5: Counseling insulin sliding scale diabetic education Hypercholesterolemia cholesterol 166: Lipitor History of [place] status post stents CKD 3 Marijuana use Morbid obesity BMI of 34 counseling Time spent 57 minutes Advanced care planning time 20 minutes Patient is full code at bed side Patient was advised about the cath findings and the plan to transfer to higher level of care for possible CABG per recommendations of craft artist Dr. Ramos Patient is not happy and wants to possibly leave AMA Plan discussed with: Patient Date of Service: Dec 02, 2024 Billing Provider: AIDA PALACIOS MD Common Visit Codes: [id number] INP/OBS CARE(HIGH) AIDA PALACIOS MD Dec 02, 2024 12:29
--- NOTE | 2024-12-02 12:37 | DVHDS2 ---
Discharge Summary Date of Admission Nov 27, 2024 at 22:09 Date of Discharge: Dec 02, 2024 Admitting Diagnosis Chest pain Wounds: Left heart catheterization Labs/Diagnostic Data: Laboratory Results Test 12/02/24 12:13 12/02/24 07:30 11/27/24 22:15 11/27/24 20:31 POC Glucose 239 mg/dl (70-106) White Blood Count 7.8 10^3/uL (4.4-10.8) Red Blood Count 4.66 10^6/uL (4.5-5.90) Hemoglobin 15.7 g/dL (13.5-17.5) Hematocrit 45.3 % (41.0-53.0) Mean Corpuscular Volume 97.3 fL (80.0-100.0) Mean Corpuscular Hemoglobin 33.8 pg (28.0-32.0) Mean Corpuscular Hemoglobin Concent 34.7 g/dL (32.0-36.0) Red Cell Distribution Width 12.8 % (11.8-14.3) Platelet Count 208 10^3/uL (140-450) Mean Platelet Volume 9.3 fL (6.9-10.8) Neutrophils (%) (Auto) 70.5 % (37.0-80.0) Lymphocytes (%) (Auto) 21.6 % (10.0-50.0) Monocytes (%) (Auto) 6.3 % (0.0-12.0) Eosinophils (%) (Auto) 1.3 % (0.0-7.0) Basophils (%) (Auto) 0.3 % (0.0-2.0) Neutrophils # (Auto) 5.5 10 ^3/uL (1.6-8.6) Lymphocytes # (Auto) 1.7 10 ^3/uL (0.4-5.4) Monocytes # (Auto) 0.5 10 ^3/uL (0-1.3) Eosinophils # (Auto) 0.1 10 ^3/uL (0-0.8) Basophils # (Auto) 0 10 ^3/uL (0-0.2) Nucleated Red Blood Cells 0.1 % Prothrombin Time 11.2 sec (9.3-11.8) Prothrombin Time INR 1.06 (0.9-1.15) Activated Partial Thromboplast Time 55.5 SEC (24.5-34.5) Sodium Level 138 mmol/L (136-145) Potassium Level 4.3 mmol/L (3.5-5.1) Chloride Level 107 mmol/L (98-107) Carbon Dioxide Level 20 mmol/L (20-31) Anion Gap 11 (5-15) Blood Urea Nitrogen 23 mg/dL (9-23) Creatinine 1.39 mg/dL (0.700-1.30) Glomerular Filtration Rate Calc 59 mL/min (>90) BUN/Creatinine Ratio 16.5 (10.0-20.0) Serum Glucose 160 mg/dL (74-106) Calcium Level 8.7 mg/dL (8.7-10.4) Total Bilirubin 0.6 mg/dL (0.2-1.0) Aspartate Amino Transferase (AST) 19 U/L (13-40) Alanine Aminotransferase (ALT) 19 U/L (7-40) Alkaline Phosphatase 75 U/L (46-116) Total Protein 7.0 g/dL (5.7-8.2) Albumin 4.0 g/dL (3.2-4.8) Troponin I High Sensitivity 34 ng/L (</=54) Phosphorus Level 2.6 mg/dL (2.4-5.1) Magnesium Level 2.0 mg/dL (1.6-2.6) Triglycerides Level 166 mg/dL (< 150) Cholesterol Level 129 mg/dL (< 200) LDL Cholesterol 73 mg/dL (< 100) HDL Cholesterol 39 mg/dL (40-59) Test 11/27/24 19:23 Hemoglobin A1c 8.5 % A1C (<5.7) B-Type Natriuretic Peptide 19.63 pg/mL (0-100) Vitamin B12 Level 572 pg/mL (211-911) Vitamin D 25-Hydroxy 34.0 ng/mL (30.0-100) Thyroid Stimulating Hormone (TSH) 1.03 uIU/mL (0.55-4.78) Other Laboratory Tests 12/02/24 07:30 Brief Hx & Hospital Course: CT ruled male came with chest pain and hypertensive crisis blood pressure 193 treated with the metoprolol lisinopril cardiology consult for Dr. 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 The patient also has a new onset type 2 diabetes A1c 8.5 patient's history of [place] with a stents in the past patient also morbidly obese BMI of 34 Advised the patient about the cath findings and recommendation with the boiler house inspector for transfer to higher level of care for CABG. at bedside. RN Destiny at bedside. The patient is upset and thinking of leaving AMA Consults/Reason for consult Cardiology Dr. Ramos Operations or Procedures Left heart catheterization Condition at Discharge: Fair Final Diagnosis/Problems List Hypertensive crisis systolic 193 metoprolol, lisinopril, cardiology consult for Dr. Ramos Acute chest pain rule out coronary artery disease, troponin negative, cardiology consult by Dr. Ramos appreciated, Status post left heart catheterization by Dr. Ramos with the findings of: LM and critical RCA stenosis, advised transfer to higher level of care for CABG Possibly CUCO versus vasomotor nephropathy Newly diagnosed type 2 diabetes, A1c 8.5: Counseling insulin sliding scale diabetic education Hypercholesterolemia cholesterol 166: Lipitor History of [place] status post stents CKD 3 Marijuana use Morbid obesity BMI of 34 counseling Discharge Disposition: Acute Care Facility Discharge Instruct/Medications Diet: Cardiac 2g Na,low cholest Activity: Light activity Follow Up/Referral: Per receiving hospital Medications: see list No Active Prescriptions or Reported Meds 39 (Time Taken for discharge summary 39 minutes) Discharge Statement: "Patient was advised to return to the ER or call 911 if any headaches, dizziness, shortness of breath, chest pain, abdominal pain, bleeding, fevers, or worsening of medical condition. Patient was counseled about treatment plan, medications, possible side effects, patientverbalized understanding. All questions were answered to the best of my ability. This discharge took greater then 30 minutes in planning, reviewing documentation, counseling the patient, and discussing with other team members." ASSESSMENT ASSESSMENT Hospital Course Marginally improved Assessment Hypertensive crisis systolic 193 metoprolol, lisinopril, cardiology consult for Dr. Ramos Acute chest pain rule out coronary artery disease, troponin negative, cardiology consult by Dr. Ramos appreciated, Status post left heart catheterization by Dr. Ramos with the findings of: LM and critical RCA stenosis, advised transfer to higher level of care for CABG Possibly CUCO versus vasomotor nephropathy Newly diagnosed type 2 diabetes, A1c 8.5: Counseling insulin sliding scale diabetic education Hypercholesterolemia cholesterol 166: Lipitor History of [place] status post stents CKD 3 Marijuana use Morbid obesity BMI of 34 counseling Date of Service: Dec 02, 2024 Billing Provider: AIDA PALACIOS MD Common Visit Codes: 61430-ABJ/OBS DISCH DAY >30min AIDA PALACIOS MD Dec 02, 2024 12:37
[2024-12-02 14:18] LABS: INR 1.03 (0.9-1.15); Partial Thromboplastin Time 44.7 SEC (24.5-34.5); Prothrombin Time 10.9 sec (9.3-11.8)
--- NOTE | 2024-12-02 14:43 | CONS ---
Pharmacy Clinical Information: HEPARIN DRIP, ACS PROTOCOL @1320 APTT 44.7- NO BOLUS, INCREASE RATE TO 1500 UNITS/HR NEXT APTT DRAW SCHEDULED @2100 PER RX PROTOCOL CONFIRMED AND READ BACK WITH RN ROSE MARY [facility] RES[facility] Dec 02, 2024 14:43
[2024-12-02 16:36] VITALS: BP 140/90; PULSE 82; RESP 16; TEMP 97.4; O2SAT 100
[2024-12-02 17:15] VITALS: BP 148/91; PULSE 74; RESP 20; TEMP 98.2; O2SAT 98
== END 2024-12-02 18:23 | disposition short-term general hospital (02) | DRG 191 ==
LOC: ER 19:06 → OVERFLOW 22:09 → TELE-WESTW 23:55
PROVIDERS: ADMIT Family Medicine; ATTEND Family Medicine
PROC: 4A023N7 Measurement of Cardiac Sampling and Pressure, Left Heart, Percutaneous Approach (ICD-10-PCS; principal; 2024-12-01)
PROC: B211YZZ Fluoroscopy of Multiple Coronary Arteries using Other Contrast (ICD-10-PCS; 2024-12-01)
DX: I25.10 Atherosclerotic heart disease of native coronary artery without angina pectoris (principal); N17.0 Acute kidney failure with tubular necrosis; I16.9 Hypertensive crisis, unspecified; E11.22 Type 2 diabetes mellitus with diabetic chronic kidney disease; E66.01 Morbid (severe) obesity due to excess calories; N18.32 Chronic kidney disease, stage 3b; Z68.34 Body mass index [BMI] 34.0-34.9, adult; I16.0 Hypertensive urgency; E11.65 Type 2 diabetes mellitus with hyperglycemia; I12.9 Hypertensive chronic kidney disease with stage 1 through stage 4 chronic kidney disease, or unspecified chronic kidney disease; E78.00 Pure hypercholesterolemia, unspecified; I25.2 Old myocardial infarction; Z95.5 Presence of coronary angioplasty implant and graft; Z79.899 Other long term (current) drug therapy
CPT/HCPCS: 36415; 71045; 80048; 80053; 80061; 82306; 82607; 82962; 83036; 83735; 83880; 84100; 84443; 84484; 85025; 85610; 85730; 86850; 86900; 86901; 93005; 93306; 93458; 96374; 99152; G0378; J1815; J2250; Q9967